=== PATIENT | female | born 1935 | race African-American/Black ===

== ENCOUNTER 2016-12-24 13:41 | Observation (INO) | payer MEDICARE, OTHER ==
[~2016-12-24] VITALS: Ht 165.1 cm; Wt 70.8 kg
[2016-12-24 14:30] LABS: BARBITURATES NEG (NEG); BENZODIAZEPINES NEG (NEG); CANNABINOIDS NEG (NEG); COCAINE NEG (NEG); METHADONE NEG (NEG); OPIATES NEG (NEG); PHENCYCLIDINE NEG (NEG)
[2016-12-24 14:31] LABS: BASO # 0.1 x10^3/uL (0.0-0.2); BASO % 1 % (0-3); EOS % 3 % (0-3); HEMATOCRIT 46.4 % (36.0-47.0); HEMOGLOBIN 15.4 g/dL (12.0-15.5); LYMPH # 2.7 x10^3/uL (1.0-4.8); LYMPH % 41 % (24-48); MEAN CORPUSCULAR HEMOGLOBIN 29 pg (25-35); MEAN CORPUSCULAR HGB CONC 33 g/dL (31-37); MEAN CORPUSCULAR VOLUME 89 fL (79-100); MONO % 10 % (0-9); NEUT % 45 % (31-73); PLATELET COUNT 222 x10^3/uL (140-400); RED BLOOD COUNT 5.24 x10^6/uL (3.50-5.40); RED CELL DISTRIBUTION WIDTH 13.4 % (11.5-14.5); WHITE BLOOD COUNT 6.4 x10^3/uL (4.0-11.0)
[2016-12-24 14:33] LABS: ETHANOL, URINE NEG (NEG)
--- NOTE | 2016-12-24 14:33 | EKG ---
[facility] [address] [place] [address] Test Date: 2016-12-24 Test Time: 13:55:42 Pat Name: KUSHAL PRATHER Department: Room: Gender: F [employer] Tender: : 1935 Requested By: IVA VALADEZ Order Number: [id number] Reading MD: Measurements Intervals Mullin Rate: 72 P: AK: QRS: 29 QRSD: 86 T: 67 QT: 394 QTc: 433 Interpretive Statements IRREGULAR RHYTHM, NO P-WAVE FOUND QRS(T) CONTOUR ABNORMALITY CONSIDER ANTEROSEPTAL MYOCARDIAL DAMAGE T ABNORMALITY IN ANTERIOR LEADS HIGH LATERAL LEADS RI6.01 Unconfirmed report No previous ECG available for comparison
[2016-12-24 14:45] LABS: INR 1.1 (0.8-1.1); PROTHROMBIN TIME PATIENT 13.2 SEC (11.7-14.0)
[2016-12-24 14:49] LABS: CALCIUM 9.3 mg/dL (8.5-10.1); CREATININE 0.7 mg/dL (0.6-1.0); GFR 97.4; POTASSIUM 4.5 mmol/L (3.5-5.1)
--- NOTE | 2016-12-24 15:02 | RAD ---
CT of the head without contrast, 12/24/2016: History: Seizures. Comparison is made to a study from 04/11/2012. The ventricles are within normal limits in size. There is no shift of the midline structures. There is no evidence of acute intracranial hemorrhage or mass effect. There is mild cerebral and cerebellar atrophy. IMPRESSION: No acute intracranial abnormality is detected. PQRS Compliance Statement: One or more of the following individualized dose reduction techniques were utilized for this examination: 1. Automated exposure control 2. Adjustment of the mA and/or kV according to patient size 3. Use of iterative reconstruction technique
[2016-12-24] MEDS ORDERED: MIRT15TA3 PO (15:57)
[2016-12-24] MEDS ORDERED: LORA0.5T PO (15:57)
[2016-12-24] MEDS ORDERED: OLAN5TAB9 PO (15:57)
[2016-12-24] MEDS ORDERED: ESCI10TA PO (15:57)
[2016-12-24] MEDS ORDERED: METF10002 PO (15:57)
[2016-12-24] MEDS ORDERED: DONE10TA14 PO (15:57)
[2016-12-24] MEDS ORDERED: LEVE500T6 PO (15:57)
[2016-12-24] MEDS ORDERED: METO25TA9 PO (15:57)
--- NOTE | 2016-12-24 16:34 | PHYS DOC ---
Past Medical History Past Medical History: Anxiety, Dementia, Diabetes-Type II, Hypertension, Seizure Past Surgical History: No Surgical History Alcohol Use: None Drug Use: None Adult General Chief Complaint Chief Complaint: SEIZURE HPI HPI 81-year-old female presenting to the emergency department today after having reportedly 3 seizures at home. Lasted approximately 4 minutes. Patient's family here reporting that the patient returned to baseline. She denies any fall or head injury. She currently takes antiepileptic medications Keppra 500 mg twice a day. She was postictal however upon EMS arrival the patient was responsive and alert. Review of systems was negative for chest pain shortness of breath abdominal pain nausea or vomiting. The patient denies numbness weakness or tingling. All other review of systems is negative unless otherwise noted in history of present illness. Review of Systems Review of Systems SEE ABOVE. Allergies Allergies Allergies Coded Allergies Type Severity Reaction Last Updated Verified codeine Allergy Intermediate 02/22/15 No iodine Allergy Intermediate 02/22/15 No Physical Exam Physical Exam Constitutional: Well developed, well nourished, no acute distress, non-toxic appearance. HENT: Normocephalic, atraumatic, bilateral external ears normal, oropharynx moist, no oral exudates, nose normal. [] Eyes: PERRLA, EOMI, conjunctiva normal, no discharge. Neck: Normal range of motion, no tenderness, supple, no stridor. [] Cardiovascular:Heart rate regular rhythm, no murmur [] Lungs & Thorax: Bilateral breath sounds clear to auscultation Abdomen: Bowel sounds normal, soft, no tenderness, no masses, no pulsatile masses. [] Skin: Warm, dry, no erythema, no rash. Back: No tenderness, no CVA tenderness. [] Extremities: No tenderness, no cyanosis, no clubbing, ROM intact, no edema. [] Neurologic: Neuro exam: Mental status: Awake oriented and alert x3 Cranial nerves: Extraocular movements intact, eyebrows elena bilaterally smile symmetric, uvula elevation, shoulder shrug intact, tongue protrusion normal Sensation: equal and normal in all extremities Strength: 5/5 in upper and lower extremities bilaterally Psychologic: Affect normal, judgement normal, mood normal. [] Current Patient Data Vital Signs Vital Signs Date Time Temp Pulse Resp B/P Pulse Ox O2 Delivery O2 Flow Rate FiO2 12/24/16 13:50 97.8 72 20 213/98 96 Room Air 97.8 Lab Values Laboratory Tests Test 12/24/16 13:57 12/24/16 14:20 Urine Opiates Screen Neg (NEG) Urine Methadone Screen Neg (NEG) Urine Barbiturates Neg (NEG) Urine Phencyclidine Screen Neg (NEG) Urine Amphetamine/Methamphetamine Neg (NEG) Urine Benzodiazepines Screen Neg (NEG) Urine Cocaine Screen Neg (NEG) Urine Cannabinoids Screen Neg (NEG) Urine Ethyl Alcohol Neg (NEG) White Blood Count 6.4x10^3/uL (4.0-11.0) Red Blood Count 5.24x10^6/uL (3.50-5.40) Hemoglobin 15.4g/dL (12.0-15.5) Hematocrit 46.4% (36.0-47.0) Mean Corpuscular Volume 89fL (79-100) Mean Corpuscular Hemoglobin 29pg (25-35) Mean Corpuscular Hemoglobin Concent 33g/dL (31-37) Red Cell Distribution Width 13.4% (11.5-14.5) Platelet Count 222x10^3/uL (140-400) Neutrophils (%) (Auto) 45% (31-73) Lymphocytes (%) (Auto) 41% (24-48) Monocytes (%) (Auto) 10% (0-9) H Eosinophils (%) (Auto) 3% (0-3) Basophils (%) (Auto) 1% (0-3) Neutrophils # (Auto) 2.9x10^3uL (1.8-7.7) Lymphocytes # (Auto) 2.7x10^3/uL (1.0-4.8) Monocytes # (Auto) 0.6x10^3/uL (0.0-1.1) Eosinophils # (Auto) 0.2x10^3/uL (0.0-0.7) Basophils # (Auto) 0.1x10^3/uL (0.0-0.2) Prothrombin Time 13.2SEC (11.7-14.0) Prothrombin Time INR 1.1 (0.8-1.1) PTT 29SEC (24-38) Sodium Level 148mmol/L (136-145) H Potassium Level 4.5mmol/L (3.5-5.1) Chloride Level 107mmol/L (98-107) Carbon Dioxide Level 29mmol/L (21-32) Anion Gap 12 (6-14) Blood Urea Nitrogen 8mg/dL (7-20) Creatinine 0.7mg/dL (0.6-1.0) Estimated GFR (Cockcroft-Gault) 97.4 Glucose Level 145mg/dL (70-99) H Calcium Level 9.3mg/dL (8.5-10.1) Laboratory Tests 12/24/16 14:20 Laboratory Tests 12/24/16 14:20 EKG EKG [] Radiology/Procedures Radiology/Procedures [] Course & Med Decision Making Course & Med Decision Making Pertinent Labs and Imaging studies reviewed. (See chart for details) [] 81-year-old female presenting to the emergency department today with 3 seizure like activities. On arrival the patient was back to normal neurologic exam. The patient follows with our neurology team on a regular basis. She reports taking her medications as prescribed. Vital signs showed significant hypertension. Otherwise unremarkable. Pertinent physical exam shows neurologic exam unremarkable. Head CT unremarkable. Blood work obtained which showed normal CBC. Chemistry panel shows mild hypernatremia and hyperglycemia. Otherwise UDS negative. The patient was then admitted for further evaluation workup and care including monitoring of her seizure condition. Neurology consult placed. Dragon Disclaimer Dragon Disclaimer This electronic medical record was generated, in whole or in part, using a voice recognition dictation system. Departure Departure Impression: Primary Impression: Seizure Disposition: ADMITTED INPATIENT Admitting Physician: Storm Conner Condition: STABLE Referrals: STORM CONNER MD (PCP) IVA VALADEZ MD Dec 24, 2016 16:34
[2016-12-24] MEDS ORDERED: LABETALOL 20 MG/4 ML DISP.SYRIN. IVP ONE (16:45)
--- NOTE | 2016-12-24 17:03 | ACF ---
Admission Forms Criteria SEIZURE Clinical Indications for Admission to Inpatient Care (Place 'X' for any and all applicable criteria): Admission is indicated for seizure and ANY ONE of the following(1)(2)(3)(4)(5): [X]I. Inpatient admission required rather than observation care (Also use Seizure: Observation Care Criteria as appropriate) because of ANY ONE of the following: [ ]a) Altered mental status that is severe or persistent [ ]b) New focal neurologic deficit that is severe or persistent [ ]c) Metabolic disorder (eg, hypoglycemia, hyponatremia) that is severe or persistent [X]d) Recurrent seizure [ ]e) Outpatient antiseizure regimen cannot be established (eg , patient cannot tolerate medication, initiation requires inpatient care) [ ]f) Need for ongoing intravenous infusion of antiseizure medication [ ]g) Cardiac arrhythmias of immediate concern [ ]h) Cerebral bleeding, hydrocephalus, or vasospasm monitoring (14) [ ]i) Increased intracranial pressure or cerebral edema monitoring (15) [ ]j) Other treatment or monitoring requiring inpatient admission [ ]II. Status epilepticus [A] or repetitive seizures not controlled with emergent treatment (6)(8) [ ]III. Brain disorder (eg, tumor, edema, and hydrocephalus) that requiring monitoring or intervention available only at inpatient level of care. [ ]IV. Brain insult (eg, severe trauma, stroke, drug toxicity, or withdrawal) that requires monitoring or intervention available only at inpatient level of care (10)(11) Extended stay beyond goal length of stay may be needed for (22) [ ]a) Complications of status epilepticus [ ]b) Refractory status epilepticus [ ]c) Etiology-specific therapy for conditions such as FRUIT TESTER infection, head injury,eclampsia, severe metabolic abnormalities, and brain tumor [ ]d) Residual neurologic damage, [ ]e) Initiation of significant change to anticonvulsant treatment [ ]f) Older patients (65 years or older) [ ]g) Patient requiring intubation (eg, to protect airway) The original [employer] content created by [employer] has been revised. The portions of the content which have been revised are identified through the use of italic text or in bold, and [facility] [employer] has neither reviewed nor approved the modified material. All other unmodified content is copyright [facility] [employer]. Please see references footnoted in the original [facility] edition 2016 Admission Criteria Met?: Yes VALDEMAR WHITE Dec 24, 2016 17:03
[2016-12-24] MEDS ORDERED: DEXTROSE 50% 25 GM / 50ML DISP.SYRIN. IV PRN (18:30)
[2016-12-24 19:00] VITALS: BP 149/96
[2016-12-24] MEDS ORDERED: LISI40TA PO (19:21)
[2016-12-24] MEDS ORDERED: ONDA4TAB12 PO (19:21)
[2016-12-24] MEDS ORDERED: PNEUMOCOCCAL VAX SCREEN BY RX. MC ONE (19:45)
[2016-12-24] MEDS ORDERED: PNEUMOC CONJ VACC 23-VALENT 0.5 ML VIAL. VAX IM ONE (20:00)
[2016-12-24] MEDS: LEVETIRACETAM 500 MG TABLET PO SCH (20:45)
[2016-12-24] MEDS: OLANZAPINE 5 MG TABLET. PO SCH (20:45)
[2016-12-24] MEDS: LORAZEPAM 0.5 MG TABLET. PO SCH (20:45)
[2016-12-24] MEDS ORDERED: MIRTAZAPINE 15 MG TABLET PO SCH (21:00)
[2016-12-24 23:00] VITALS: BP 153/72
[2016-12-25 03:00] VITALS: BP 123/77
[2016-12-25 07:00] VITALS: BP 174/86
[2016-12-25] MEDS ORDERED: METFORMIN 1,000 MG TABLET PO SCH (08:00)
[2016-12-25] MEDS: INSULIN ASPART 300 UNITS/3 ML INSULN.PEN SQ SCH ×2 (08:00→12:00)
[2016-12-25] MEDS: LORAZEPAM 0.5 MG TABLET. PO SCH (08:11)
[2016-12-25] MEDS: LEVETIRACETAM 500 MG TABLET PO SCH (08:11)
[2016-12-25] MEDS: OLANZAPINE 5 MG TABLET. PO SCH (08:11)
[2016-12-25] MEDS ORDERED: METOPROLOL SUCC 24HR ER 25 MG TAB.ER.24H. PO SCH (09:00)
[2016-12-25 10:50] VITALS: BP 140/68
[2016-12-25] MEDS ORDERED: LOSARTAN POTASSIUM 50 MG TABLET. PO SCH (11:00)
[2016-12-25 12:16] VITALS: BP 140/68
--- NOTE | 2016-12-25 12:58 | HP ---
ADMIT DATE: 12/24/2016 CHIEF COMPLAINT AND HISTORY OF PRESENT ILLNESS: This is an 81-year-old black female patient of Dr. Scott who was admitted through the Emergency Room with 3 seizures on the day of admission. They lasted a couple of minutes at a time and were described this as consistent with staring off and stiffening up. They came in succession and then had no further spells. After this was all done over a period of time, she returned to baseline, was brought to the Emergency Room because of them and was awake and alert at her normal level by the time of presentation to the Emergency Room after some initial postictal time in the field. PAST MEDICAL HISTORY: Remarkable for prior seizure. She has a history of hypertension, diabetes, dementia, anxiety. PAST SURGICAL HISTORY: She has no past surgical history. MEDICATIONS: Brought with the patient. Listed on the computer and have been addressed. ALLERGIES: SHE IS ALLERGIC TO CODEINE AND IODINE. FAMILY HISTORY AND SOCIAL HISTORY: Noncontributory. REVIEW OF SYSTEMS: Is remarkable for having no complaints whatsoever. Her son who present during the exam describes the episodes at home as he was there witnessing them. They deny any other significant problems preceding this or leading up to this episode. PHYSICAL EXAMINATION: GENERAL: She is a well-developed, well-nourished black female, in no acute distress. VITAL SIGNS: Stable. She is afebrile. HEAD, EYES, EARS, NOSE AND THROAT: Unremarkable. NECK: Supple. No thyromegaly. CHEST: Clear to auscultation and percussion. HEART: Regular rate and rhythm, without S3, S4 or murmur. ABDOMEN: Soft, nontender, without hepatosplenomegaly or mass. EXTREMITIES: Without cyanosis, clubbing or edema. NEUROLOGIC: Nonfocal. IMAGING: CT head shows no acute changes. Drug screen is normal. LABORATORY DATA: Essentially unremarkable. IMPRESSION: Seizure times 3 on day of admission with multiple other problems listed above. PLAN: The patient has been admitted. Neurology will be consulted for suggestions as far as further treatment and the patient will be monitored, managed and treated appropriately. SUE WALTON MD DR: SHANTI/sharla JOB#: [id number] / [id number]
--- NOTE | 2016-12-25 13:46 | PDOC2 ---
NEUROLOGY CONSULT Date of Admission Date of Admission DATE: 12/25/16 TIME: 13:41 Reason for Consult Reason for Consult: Seizures Referring Physician Referring Physician: Dr. Scott Source Source: Caregiver, Chart review, Patient History of Present Illness History of Present Illness The patient is an 81-year-old right-handed female whom I follow in the office for Alzheimer's dementia and epilepsy. I last saw her 9 months ago. She had 3 seizures yesterday and was admitted. There has been no noncompliance, stress, sleep deprivation, or infection. This is her usual course for her epilepsy with flurries of seizures by months of seizure freedom. She has rather severe dementia but still lives at home with her and does well. There is no history of stroke or head injury. Past Medical History Cardiovascular: HTN CENTRAL NERVOUS SYSTEM: Dementia, Seizure Endocrine: Diabetes Past Surgical History Past Surgical History: No pertinent history Family History Family History: CAD Social History Social History , nonsmoker, nondrinker Current Medications Current Medications Current Medications Labetalol HCl (Normodyne) 20 mg 1X ONCE IVP Last administered on 12/24/16 16: 47; Start 12/24/16 at 16:45; Stop 12/24/16 at 16:46; Status DC Levetiracetam (Keppra) 500 mg BID PO Last administered on 12/25/16 08:11; Start 12/24/16 at 21:00; Stop 12/25/16 at 09:43; Status DC Lorazepam (Ativan) 0.5 mg TID PO Last administered on 12/25/16 08:11; Start at 21:00 Metformin HCl (Glucophage) 1,000 mg BIDWMEALS PO Last administered on 08:11; Start 12/25/16 at 08:00 Metoprolol Succinate (Toprol Xl) 25 mg DAILY PO Last administered on 12/25/16 08:12; Start 12/25/16 at 09:00 Mirtazapine (Remeron) 15 mg QHS PO Last administered on 12/24/16 20:45; Start 12/24/16 at 21:00 Olanzapine (Zyprexa) 5 mg DAILY PO Last administered on 12/25/16 08:11; Start 12/24/16 at 19:00 Insulin Aspart (Novolog) 0-5 UNITS TIDWMEALS SQ ; Start 12/25/16 at 08:00 Dextrose 12.5 gm PRN Q15MIN PRN IV SEE COMMENTS; Start 12/24/16 at 18:30 Pneumococcal Polyvalent Vaccine (Do NOT chart on this placeholder) 1 each 1X ONCE MC ; Start 12/24/16 at 19:45; Stop 12/24/16 at 19:46; Status UNV Pneumococcal Polyvalent Vaccine (Pneumovax 23) 0.5 ml ONCE ONCE VAX IM Last administered on 12/24/16t 20:46; Start 12/24/16 at 20:00; Stop 12/24/16 at 20:01 ; Status DC Levetiracetam (Keppra) 2,000 mg BID PO ; Start 12/25/16 at 21:00 Losartan Potassium (Cozaar) 100 mg DAILY PO Last administered on 12/25/16t 12: 16; Start 12/25/16 at 11:00 Active Scripts Active Reported Ondansetron Odt (Ondansetron) 4 Mg Tab.rapdis 1 Tab PO PRN Q6-8HRS Lisinopril 40 Mg Tablet 1 Tab PO DAILY Levetiracetam 500 Mg Tablet 500 Mg PO BID Metformin Hcl 1,000 Mg Tablet 1 Tab PO BID Lorazepam 0.5 Mg Tablet 0.5 Mg PO TID Escitalopram Oxalate 10 Mg Tablet 10 Mg PO DAILY Mirtazapine 15 Mg Tablet 1 Tab PO QHS Donepezil Hcl 10 Mg Tab.rapdis 10 Mg PO HS Olanzapine 5 Mg Tablet 5 Mg PO DAILY Metoprolol Succinate ( Xl ) (Metoprolol Succinate) 25 Mg Tab.er.24h 25 Mg PO DAILY Allergies Allergies: Coded Allergies: codeine (Verified Allergy, Intermediate, 12/25/16) iodine (Verified Allergy, Intermediate, 12/25/16) ROS Review of System Patient denies fevers, chills, weight loss, dyspnea, angina, abdominal pain, change in bowels, or dysuria. 14 point review of systems is negative. Physical Exam Physical Examination PHYSICAL EXAMINATION: Vital signs: see above. General appearance is normal and in no acute distress. HEENT: Normocephalic and nontraumatic. Eyes, nose, ears, and throat are unremarkable. Neck is supple. No lymphadenopathy. No bruits are heard over the carotid artery. No crepitus. NEUROLOGICAL EXAMINATION: Mental Status Examination: Alert. Oriented to place, and person, not date. Answers questions and follows commends. Pupils are equal round and reactive to light and accommodation. Extraocular movements are intact. Visual field exam shows no defect on the direct confrontation. No motor or sensory deficits on the facial exam. Uvula in the midline and the soft palate elevated symmetrically. No deviation of the tongue to any direction. Gross hearing is normal. Shoulder shrug normal. Muscle tone is normal. Muscle strength is 5/ 5. Deep tendon reflexes are 2+. Plantar reflex is with flexion response bilaterally. Rtywju-xo-xayf test performance is accurate. Alternative movements are accurate. Romberg test is negative. Gait is normal. Sensory exam shows no deficits. No cerebellar signs are elicited. Vitals VITALS Vital Signs Date Time Temp Pulse Resp B/P Pulse Ox O2 Delivery O2 Flow Rate FiO2 12/25/16 12:16 81 140/68 12/25/16 10:50 99.5 16 96 Room Air 99.5 Labs Labs Laboratory Tests Test 12/24/16 13:57 12/24/16 14:20 12/24/16 20:58 12/25/16 07:09 Urine Opiates Screen Neg (NEG) Urine Methadone Screen Neg (NEG) Urine Barbiturates Neg (NEG) Urine Phencyclidine Screen Neg (NEG) Urine Amphetamine/Methamphetamine Neg (NEG) Urine Benzodiazepines Screen Neg (NEG) Urine Cocaine Screen Neg (NEG) Urine Cannabinoids Screen Neg (NEG) Urine Ethyl Alcohol Neg (NEG) White Blood Count 6.4x10^3/uL (4.0-11.0) Red Blood Count 5.24x10^6/uL (3.50-5.40) Hemoglobin 15.4g/dL (12.0-15.5) Hematocrit 46.4% (36.0-47.0) Mean Corpuscular Volume 89fL (79-100) Mean Corpuscular Hemoglobin 29pg (25-35) Mean Corpuscular Hemoglobin Concent 33g/dL (31-37) Red Cell Distribution Width 13.4% (11.5-14.5) Platelet Count 222x10^3/uL (140-400) Neutrophils (%) (Auto) 45% (31-73) Lymphocytes (%) (Auto) 41% (24-48) Monocytes (%) (Auto) 10% (0-9) Eosinophils (%) (Auto) 3% (0-3) Basophils (%) (Auto) 1% (0-3) Neutrophils # (Auto) 2.9x10^3uL (1.8-7.7) Lymphocytes # (Auto) 2.7x10^3/uL (1.0-4.8) Monocytes # (Auto) 0.6x10^3/uL (0.0-1.1) Eosinophils # (Auto) 0.2x10^3/uL (0.0-0.7) Basophils # (Auto) 0.1x10^3/uL (0.0-0.2) Prothrombin Time 13.2SEC (11.7-14.0) Prothromb Time International Ratio 1.1 (0.8-1.1) Activated Partial Thromboplast Time 29SEC (24-38) Sodium Level 148mmol/L (136-145) Potassium Level 4.5mmol/L (3.5-5.1) Chloride Level 107mmol/L (98-107) Carbon Dioxide Level 29mmol/L (21-32) Anion Gap 12 (6-14) Blood Urea Nitrogen 8mg/dL (7-20) Creatinine 0.7mg/dL (0.6-1.0) Estimated GFR (Cockcroft-Gault) 97.4 Glucose Level 145mg/dL (70-99) Calcium Level 9.3mg/dL (8.5-10.1) Glucose (Fingerstick) 122mg/dL (70-99) 130mg/dL (70-99) Test 12/25/16 11:16 Glucose (Fingerstick) 130mg/dL (70-99) Laboratory Tests Test 12/24/16 13:57 12/24/16 14:20 12/24/16 20:58 12/25/16 07:09 Urine Opiates Screen Neg (NEG) Urine Methadone Screen Neg (NEG) Urine Barbiturates Neg (NEG) Urine Phencyclidine Screen Neg (NEG) Urine Amphetamine/Methamphetamine Neg (NEG) Urine Benzodiazepines Screen Neg (NEG) Urine Cocaine Screen Neg (NEG) Urine Cannabinoids Screen Neg (NEG) Urine Ethyl Alcohol Neg (NEG) White Blood Count 6.4x10^3/uL (4.0-11.0) Red Blood Count 5.24x10^6/uL (3.50-5.40) Hemoglobin 15.4g/dL (12.0-15.5) Hematocrit 46.4% (36.0-47.0) Mean Corpuscular Volume 89fL (79-100) Mean Corpuscular Hemoglobin 29pg (25-35) Mean Corpuscular Hemoglobin Concent 33g/dL (31-37) Red Cell Distribution Width 13.4% (11.5-14.5) Platelet Count 222x10^3/uL (140-400) Neutrophils (%) (Auto) 45% (31-73) Lymphocytes (%) (Auto) 41% (24-48) Monocytes (%) (Auto) 10% (0-9) Eosinophils (%) (Auto) 3% (0-3) Basophils (%) (Auto) 1% (0-3) Neutrophils # (Auto) 2.9x10^3uL (1.8-7.7) Lymphocytes # (Auto) 2.7x10^3/uL (1.0-4.8) Monocytes # (Auto) 0.6x10^3/uL (0.0-1.1) Eosinophils # (Auto) 0.2x10^3/uL (0.0-0.7) Basophils # (Auto) 0.1x10^3/uL (0.0-0.2) Prothrombin Time 13.2SEC (11.7-14.0) Prothromb Time International Ratio 1.1 (0.8-1.1) Activated Partial Thromboplast Time 29SEC (24-38) Sodium Level 148mmol/L (136-145) Potassium Level 4.5mmol/L (3.5-5.1) Chloride Level 107mmol/L (98-107) Carbon Dioxide Level 29mmol/L (21-32) Anion Gap 12 (6-14) Blood Urea Nitrogen 8mg/dL (7-20) Creatinine 0.7mg/dL (0.6-1.0) Estimated GFR (Cockcroft-Gault) 97.4 Glucose Level 145mg/dL (70-99) Calcium Level 9.3mg/dL (8.5-10.1) Glucose (Fingerstick) 122mg/dL (70-99) 130mg/dL (70-99) Test 12/25/16 11:16 Glucose (Fingerstick) 130mg/dL (70-99) Images Images Head CT: No acute intracranial abnormality is detected. Assessment/Plan Assessment/Plan Impression: Long-standing epilepsy, tending to have flurries of seizures. Long-standing dementia Recommendations: Okay for discharge today Follow-up with me in the office in 2 months Continue current medications. Donepezil was omitted from her medications and I have written for it. Thank you for letting me help with the patient's care. GILLES GONZALES MD Dec 25, 2016 13:46
[2016-12-25] MEDS ORDERED: LEVE100S8 PO (14:18)
[2016-12-25] MEDS ORDERED: DONEPEZIL HCL 10 MG TABLET. PO SCH (14:30)
[2016-12-25] MEDS ORDERED: LEVETIRACETAM 500 MG TABLET PO SCH (21:00)
--- NOTE | 2016-12-26 05:46 | DS ---
DATE OF DISCHARGE: 12/25/2016 PRIMARY DIAGNOSIS: Epilepsy with flurry of seizures on the day of admission. ADDITIONAL DIAGNOSES: Dementia, hypertension, diabetes, anxiety. CHIEF COMPLAINT AND HISTORY OF PRESENT ILLNESS: This is an 81-year-old black female patient of Dr. Scott, who was admitted through the Emergency Room with 3 seizures on the day of admission. She does have a long history of seizures with intermittent flurries of the same. She had 3 on the day of admission, with admission through the Emergency Room. SUMMARY OF STAY: The patient was admitted. Home meds were continued. Dr. Salcido saw her in consultation, who thought no further workup was necessary other than the CT head, which had been done and showed no evidence of an acute intracranial abnormality. Laboratory during the stay included a CBC that was essentially unremarkable, BMP that was fairly unremarkable with decent blood sugars throughout the stay, a protime that was normal, PTT that was normal and a urine drug screen that was normal. I discussed in depth with her sons ____ she had good compliance with her medications at home ____ the same and it was felt she could be dismissed. DISPOSITION: The patient is discharged home. Regular ADA diet. Activity as tolerated. Office of Dr. Scott as scheduled and she is to resume exact regular home medications, which are listed on the med rec and have been addressed. SUE WALTON MD DR: SHANTI/sharla JOB#: [id number] / [id number]
== END 2016-12-25 14:30 | disposition home or self-care (01) ==
LOC: ER 13:41 → 6 SOUTH 16:34
PROVIDERS: ADMIT Internal Medicine; ATTEND Internal Medicine
DX: G40.909 Epilepsy, unspecified, not intractable, without status epilepticus (principal); I10 Essential (primary) hypertension; E11.9 Type 2 diabetes mellitus without complications; F41.9 Anxiety disorder, unspecified; G30.9 Alzheimer's disease, unspecified; F02.80 Dementia in other diseases classified elsewhere, unspecified severity, without behavioral disturbance, psychotic disturbance, mood disturbance, and anxiety; Z82.49 Family history of ischemic heart disease and other diseases of the circulatory system; Z23 Encounter for immunization
CPT/HCPCS: 36415; 70450; 80048; 82947; 85027; 85610; 85730; 90732; 93005; 96374; 99285; G0009; G0378; G0481; J1815; J3490; G0379

== ENCOUNTER 2017-02-12 23:47 | Emergency (ER) | payer MEDICARE, OTHER ==
[~2017-02-12 23:47] MED LIST: DONE10TA14 PO; ESCITALOPRAM OX10 MG PO; LEVE100S8 PO; LEVE500T6 PO; LISI40TA PO; LORA0.5T PO; METF-620 PO; METO25TA9 PO; MIRT15TA3 PO; OLAN5TAB9 PO; ONDA4TAB12 PO
--- NOTE | 2017-02-13 00:05 | PHYS DOC ---
Past Medical History Past Medical History: Anxiety, Dementia, Diabetes-Type II, Hypertension, Seizure Past Surgical History: No Surgical History Alcohol Use: None Drug Use: None Adult General Chief Complaint Chief Complaint: URINARY FREQUENCY HPI HPI Patient is a 81 year old female who presents to the emergency department for evaluation due to concern of possible urinary tract infection. Patient was brought to the emergency department by EMS. Patient has history of type 2 diabetes mellitus and dementia. Patient is a somewhat poor historian. Patient denies any complaints. EMS reports that the patient has been called EMS after the patient was taken to the bathroom and reportedly had dark urine that was foul-smelling. The was concerned that the patient may have urinary tract infection and thus called EMS for the patient to be brought to the emergency department for evaluation. Patient has had no reported fevers and patient states that she has not had any falls or any difficulty ambulating at home. Patient denies any pain, nausea, or dysuria. Review of Systems Review of Systems Constitutional: Denies fever or chills [] Eyes: Denies change in visual acuity, redness, or eye pain [] HENT: Denies nasal congestion or sore throat [] Respiratory: Denies cough or shortness of breath [] Cardiovascular: Denies chest pain or edema [] GI: Denies abdominal pain, nausea, vomiting, bloody stools or diarrhea [] : Denies dysuria or hematuria [] Musculoskeletal: Denies back pain or joint pain [] Integument: Denies rash or skin lesions [] Neurologic: Denies headache, focal weakness or sensory changes [] Allergies Allergies Allergies Coded Allergies Type Severity Reaction Last Updated Verified codeine Allergy Intermediate 12/25/16 Yes iodine Allergy Intermediate 12/25/16 Yes Physical Exam Physical Exam Constitutional: Well developed, well nourished, no acute distress, non-toxic appearance. [] HENT: Normocephalic, atraumatic, bilateral external ears normal, oropharynx moist, no oral exudates, nose normal. [] Eyes: PERRLA, EOMI, conjunctiva normal, no discharge. [] Neck: Normal range of motion, no tenderness, supple, no stridor. [] Cardiovascular:Heart rate regular rhythm, no murmur [] Lungs & Thorax: Bilateral breath sounds clear to auscultation [] Abdomen: Bowel sounds normal, soft, no tenderness, no masses, no pulsatile masses. [] Skin: Warm, dry, no erythema, no rash. [] Back: No tenderness, no CVA tenderness. [] Extremities: No tenderness, no cyanosis, no clubbing, ROM intact, no edema. [] Neurologic: Alert and oriented X 3, normal motor function, normal sensory function, no focal deficits noted. [] Current Patient Data Vital Signs Vital Signs Date Time Temp Pulse Resp B/P Pulse Ox O2 Delivery O2 Flow Rate FiO2 02/12/17 23:58 97.8 65 18 165/79 97 Room Air 97.8 Lab Values Laboratory Tests Test 02/13/17 00:01 Urine Collection Type U cath Urine Color Yellow Urine Clarity Clear Urine pH 6.0 Urine Specific Nitro 1.015 Urine Protein Negativemg/dL (NEG-TRACE) Urine Glucose (UA) Negativemg/dL (NEG) Urine Ketones (Stick) Negativemg/dL (NEG) Urine Blood Negative (NEG) Urine Nitrite Negative (NEG) Urine Bilirubin Negative (NEG) Urine Urobilinogen Dipstick 1.0mg/dL (0.2 mg/dL) Urine Leukocyte Esterase Negative (NEG) Urine RBC Occ/HPF (0-2) Urine WBC Occ/HPF (0-4) Urine Squamous Epithelial Cells Few/LPF Urine Bacteria 0/HPF (0-FEW) Urine Hyaline Casts Few/HPF Urine Mucus Mod/LPF EKG EKG Not performed [] Radiology/Procedures Radiology/Procedures Not performed [] Course & Med Decision Making Course & Med Decision Making Pertinent Labs and Imaging studies reviewed. (See chart for details) Patient's UA does not reveal convincing evidence for active urinary tract infection. I spoke with the patient and the patient's about results. The states that he was glad to hear there was no infection and he stated he felt comfortable taking the patient home tonight. Patient otherwise has no complaints. The patient will be discharged home with recommended routine follow-up in one week with the patient's primary doctor and return to emergency department for any worsening symptoms. Dragon Disclaimer Dragon Disclaimer This electronic medical record was generated, in whole or in part, using a voice recognition dictation system. Departure Departure Impression: Primary Impression: Feared condition not demonstrated Disposition: 01 HOME, SELF-CARE Condition: GOOD Referrals: STORM CONNER MD (PCP) Additional Instructions: Your urinalysis did not show any evidence of infection at this time. Follow-up with your primary doctor in 1 week as needed. Return to the emergency department for any worsening symptoms. JONG MENDOZA MD Feb 13, 2017 00:05
[2017-02-13 00:11] LABS: BILIRUBIN,URINE NEGATIVE (NEG); GLUCOSE,URINE NEGATIVE (NEG); NITRITE,URINE NEGATIVE (NEG); PROTEIN,URINE NEGATIVE (NEG-TRACE)
--- NOTE | 2017-02-13 00:11 | ACF ---
Admission Forms Criteria URINARY COMPLICATIONS Clinical Indications for Inpatient Care (Place 'X' for any and all applicable criteria): Ongoing inpatient care may be indicated for urinary complications with ANY ONE of the following: [ ]I. Urinary tract infection requiring inpatient care as indicated by ANY ONE of the following(8)(19)(20): [ ]a) Severe symptoms (eg, high fever, severe pain) [ ]b) Vomiting or dehydration requiring ongoing inpatient care [ ]c) IV antibiotic needs that cannot be managed at lower level of care [ ]d) Hemodynamic instability [ ]e) Obstruction of collecting system by stone or tumor [ ]II. Urinary retention requiring drainage or surgery (3)(4)(5)(17)(18) [ ]III. Renal failure (Use Renal Failure Criteria for further information.) [ ]IV. Oliguria(30) [ ]V. Post obstructive diuresis requiring close monitoring of urine output and intravenous compensation for excessive fluid losses(33) Extended stay beyond goal length of stay for primary condition may be needed until ALL of the following are present(3)(4)(5)(8): [ ]a) Renal function (creatinine) at baseline, or daily decreases in creatinine consistent with renal function return [ ]b) Voiding adequately or with urinary catheter or percutaneous suprapubic tube and management regimen in place that is performable at lower level of care. [ ]c) Urine output adequate [ ]d) Fever absent or resolving [ ]e) Infection absent or treatable at next level of care The original [employer] content created by [employer] has been revised. The portions of the content which have been revised are identified through the use of italic text or in bold, and [facility] has neither reviewed nor approved the modified material. All other unmodified content is copyright [employer] Please see references footnoted in the original [employer] edition 2016 YSABEL DUARTE Feb 13, 2017 00:11
[2017-02-13 00:20] LABS: BACTERIA,URINE 0 /HPF (0-FEW); RBC,URINE OCC /HPF (0-2); SQUAMOUS EPITHELIAL CELL,UR FEW /LPF; WBC,URINE OCC /HPF (0-4)
[2017-02-13 00:31] VITALS: BP 169/78
== END 2017-02-13 00:45 | disposition home or self-care (01) ==
LOC: ER 23:47
DX: Z71.1 Person with feared health complaint in whom no diagnosis is made (principal); E11.9 Type 2 diabetes mellitus without complications; F03.90 Unspecified dementia, unspecified severity, without behavioral disturbance, psychotic disturbance, mood disturbance, and anxiety; F41.9 Anxiety disorder, unspecified; I10 Essential (primary) hypertension; Z88.5 Allergy status to narcotic agent; Z91.041 Radiographic dye allergy status
CPT/HCPCS: 81001; 99283; P9612

== ENCOUNTER → 2017-02-23 | Outpatient (CLI) | payer MEDICARE, OTHER ==
[2017-02-13 00:31] VITALS: BP 169/78
[~2017-02-23] MED LIST changes: +ESCI10TA PO; -ESCITALOPRAM OX10 MG PO
--- NOTE | 2017-02-23 11:29 | KCIC ---
Bilateral digital screening mammograms with CAD: HISTORY Routine screening. COMPARISON Comparison is made to previous studies dated 01/07/2016 and 12/25/2014. FINDINGS Breast density category A. The skin and nipples show no abnormalities. No abnormal lymph nodes are seen in the axilla. The breast parenchyma is predominately fatty. There are no dominant masses, suspicious calcifications or architectural distortions. Note is made of some vascular calcifications bilaterally. IMPRESSION No evidence of malignancy. Recommend routine annual mammographic screening. This study was interpreted with the benefit of Computerized Aided Detection (CAD). Mammography is not 100% sensitive in detecting breast cancer. Therefore, a self breast exam and a clinical breast exam are very important. A negative mammogram does not negate a clinically suspicious finding and should not result in a delay in biopsying a clinically suspicious abnormality. BI-RADS category 1. Negative. This patient's information has been entered into a reminder system for the patient to be notified with the results of this examination and a target date for her next mammograms. Electronically signed by: Jennifer Bee MD (February 23, 2017 11:27:40)
--- NOTE | 2017-02-23 12:11 | KCIC ---
DEXA study Indication: Osteoporosis screening Reason For Study Reason: POST MENOPAUSAL, EVALUATE FOR OSTEOPOROSIS / Spl. Instructions: / History: Findings: score:-2.2 According to the world health organization (WHO): Normal: T score at or above -1 Osteopenia: T score between -1 and -2.5 Osteoporosis: T score at or below -2.5 Impression: - Findings are consistent with osteopenia. Electronically signed by: Russel Nix (February 23, 2017 12:10:09)
== END | disposition home or self-care (01) ==
LOC: KCIC DEXA 10:22
PROVIDERS: ATTEND Internal Medicine
DX: Z12.31 Encounter for screening mammogram for malignant neoplasm of breast (principal); Z13.820 Encounter for screening for osteoporosis; Z78.0 Asymptomatic menopausal state; M85.88 Other specified disorders of bone density and structure, other site
CPT/HCPCS: 77080; G0202; 77067

== ENCOUNTER → 2017-05-25 | Outpatient (CLI) | payer MEDICARE, OTHER ==
[~2017-05-25] MED LIST changes: -ESCI10TA PO; +ESCITALOPRAM OX10 MG PO
--- NOTE | 2017-05-25 08:32 | RAD ---
Indication:Pain Grayscale images of the abdomen were obtained. Comparison none Liver:No focal mass is seen in the visualized liver. The hepatic vasculature appears normal Gallbladder:Cholelithiasis is present. At least one large gallstone is seen within the gallbladder. The common bile duct diameter of approximately 6 mm is normal given the patient's age. Spleen:Normal Pancreas:As visualized normal Kidneys:Normal Abdominal aorta and IVC:Normal Ancillary findings:None Impression:Cholelithiasis. At least one large stone is present in the gallbladder
== END | disposition home or self-care (01) ==
LOC: US 07:56
PROVIDERS: ATTEND Internal Medicine
DX: K80.20 Calculus of gallbladder without cholecystitis without obstruction (principal)
CPT/HCPCS: 76700

== ENCOUNTER 2018-02-06 20:34 | Emergency (ER) | payer MEDICARE, OTHER ==
[2018-02-06 21:53] LABS: ADD MAN DIFF? NO
[2018-02-06 21:55] LABS: BASO % 1 % (0-3); EOS # 0.2 x10^3/uL (0.0-0.7); EOS % 3 % (0-3); HEMATOCRIT 42.9 % (36.0-47.0); HEMOGLOBIN 14.6 g/dL (12.0-15.5); LYMPH # 2.6 x10^3/uL (1.0-4.8); LYMPH % 41 % (24-48); MEAN CORPUSCULAR HEMOGLOBIN 31 pg (25-35); MEAN CORPUSCULAR HGB CONC 34 g/dL (31-37); MEAN CORPUSCULAR VOLUME 91 fL (79-100); MONO # 0.6 x10^3/uL (0.0-1.1); MONO % 9 % (0-9); NEUT # 2.9 x10^3uL (1.8-7.7); NEUT % 46 % (31-73); PLATELET COUNT 223 x10^3/uL (140-400); RED BLOOD COUNT 4.73 x10^6/uL (3.50-5.40); RED CELL DISTRIBUTION WIDTH 13.2 % (11.5-14.5); WHITE BLOOD COUNT 6.3 x10^3/uL (4.0-11.0)
[2018-02-06 22:09] LABS: ANION GAP 15 (6-14); BLOOD UREA NITROGEN 9 mg/dL (7-20); BUN/CREATININE RATIO 13 (6-20); CALCIUM 8.7 mg/dL (8.5-10.1); CARBON DIOXIDE 23 mmol/L (21-32); CHLORIDE 105 mmol/L (98-107); CREATININE 0.7 mg/dL (0.6-1.0); GFR 97.2; GLUCOSE 103 mg/dL (70-99); POTASSIUM 3.7 mmol/L (3.5-5.1); SODIUM 143 mmol/L (136-145)
[2018-02-06 22:16] LABS: ALBUMIN 3.3 g/dL (3.4-5.0); ALBUMIN/GLOBULIN RATIO 0.9 (1.0-1.7); ALK PHOS 91 U/L (46-116); ALT (SGPT) 17 U/L (14-59); AST (SGOT) 15 U/L (15-37); TOTAL BILIRUBIN 0.4 mg/dL (0.2-1.0)
[2018-02-06 22:30] LABS: BILIRUBIN,URINE NEGATIVE (NEG); CLARITY,URINE CLEAR; COLOR,URINE YELLOW; GLUCOSE,URINE NEGATIVE (NEG); NITRITE,URINE NEGATIVE (NEG); PROTEIN,URINE 30 mg/dL (NEG-TRACE); UROBILINOGEN,URINE 0.2 mg/dL (0.2 mg/dL)
[2018-02-06 22:36] LABS: BACTERIA,URINE 0 /HPF (0-FEW); HYALINE CASTS, URINE FEW /HPF; RBC,URINE 0 /HPF (0-2); WBC,URINE 0 /HPF (0-4)
== END 2018-02-06 23:44 | disposition home or self-care (01) ==
LOC: ER 20:34
DX: G40.909 Epilepsy, unspecified, not intractable, without status epilepticus (principal); F41.9 Anxiety disorder, unspecified; F03.90 Unspecified dementia, unspecified severity, without behavioral disturbance, psychotic disturbance, mood disturbance, and anxiety; E11.9 Type 2 diabetes mellitus without complications; I10 Essential (primary) hypertension; Z88.5 Allergy status to narcotic agent; Z91.041 Radiographic dye allergy status
CPT/HCPCS: 36415; 80053; 81001; 85025; 96365; 99284-25; J1953; P9612

== ENCOUNTER → 2018-03-27 | Outpatient (CLI) | payer MEDICARE, OTHER | END | disposition home or self-care (01) | LOC: MAMMO 13:45 | DX: Z12.31 Encounter for screening mammogram for malignant neoplasm of breast (principal) | CPT/HCPCS: 77063; 77067 ==

== ENCOUNTER 2018-09-18 14:22 | Emergency (ER) | payer MEDICARE ==
[~2018-09-18] VITALS: Ht 162.6 cm; Wt 55.8 kg
[~2018-09-18 14:22] MED LIST changes: +LISI-130 PO; -LISI40TA PO; -METF-620 PO; +METF10007 PO; +METO-239 PO; -METO25TA9 PO
--- NOTE | 2018-09-18 15:39 | RAD ---
CT HEAD AND CERVICAL SPINE WO Clinical indications: PAIN S/P FALL, DEMENTIA. NONCONTRAST HEAD CT COMPARISON: July 13, 2018. Technique: Noncontrast axial cross sectional scanning of the head was performed. PQRS compliance Statement One or more of the following individualized dose reduction techniques were utilized for this study: 1. Automated exposure control 2. Adjustment of the mA and/or kV according to patient size 3. Use of iterative reconstruction technique Findings: No acute intracranial hemorrhage or midline shift or mass-effect or hydrocephalus or extra-axial fluid collection is seen. No new focal hypodense area or sulci effacement is seen to indicate an acute infarct or edema radiographically. No skull fracture or pneumocephalus is seen. No opacification of the mastoid sinuses or the paranasal sinuses is seen. The maxillary sinuses are not completely seen in this study. Impression: No acute intracranial abnormality is seen. CERVICAL SPINE CT WITHOUT CONTRAST TECHNIQUE: Noncontrast helical CT scanning of the cervical spine was performed. Multiplanar 2-D reconstructions were generated. FINDINGS: No acute fracture or discitis or osteolytic process is evident. No anterolisthesis is seen. No perching of facet joints is evident. Degenerative facet arthropathy and degenerative endplate spurring and degenerative disc space narrowing is seen throughout the cervical spine. IMPRESSION: No acute fracture. Electronically signed by: Luc Gray MD (09/18/2018 3:35 PM) [facility]
--- NOTE | 2018-09-18 15:40 | RAD ---
Left humerus, 2 views, 09/18/2018: HISTORY: Fall, pain The bony structures are demineralized. No fracture is identified. There is moderate subcutaneous edema in the the superior aspect of the upper arm laterally. IMPRESSION: No acute bony abnormality is detected. Electronically signed by: Colt Magaña MD (09/18/2018 3:37 PM) [facility]
--- NOTE | 2018-09-18 16:36 | PHYS DOC ---
Past Medical History Past Medical History: Anxiety, Dementia, Diabetes-Type II, Hypertension, Seizure Past Medical History Limited due to dementia Past Surgical History Limited due to dementia Additional Information: Nonsmoker Alcohol Use: None Drug Use: None Social History Limited due to dementia Adult General Chief Complaint Chief Complaint: UPPER EXTREMITY INJURY HPI HPI 83 y/o female presents with history of mechanical trip and fall at home just prior to arrival. Patient reports she was "playing around" with her at time of injury. reports they both lost their balance and fell. Patient reports significant swelling and bruising to left upper arm. Small wound which is bleeding. denies loss of consciousness. Patient headache or neck pain. Patient denies other injury. Reports use of ASA daily. Limited due to dementia Review of Systems Review of Systems Musculoskeletal: Denies back pain or joint pain [] Integument: Report bruising and swelling to left upper arm Neurologic: Denies headache, focal weakness or sensory changes [] Limited due to dementia. Current Medications Current Medications Current Medications Medications (Trade) Dose Ordered Sig/Bethany Start Time Stop Time Status Last Admin Dose Admin Neomycin/ Polymyxin/ Bacitracin (Triple Antibiotic Ointment) 1 pkt 1X ONCE 09/18/18 16:45 09/18/18 16:46 DC 09/18/18 16:39 1 PKT Allergies Allergies Allergies Coded Allergies Type Severity Reaction Last Updated Verified codeine Allergy Intermediate 09/18/18 Yes iodine Allergy Intermediate 09/18/18 Yes Physical Exam Physical Exam Constitutional: Well developed, well nourished, no acute distress, non-toxic appearance. [] HENT: Normocephalic, atraumatic, bilateral TMs normal, oropharynx moist, nose normal Eyes: PERRL, EOMI, conjunctiva normal, no discharge. [] Neck: Normal range of motion, no tenderness, supple Cardiovascular: Heart rate regular rhythm, no murmur [] Lungs & Thorax: Bilateral breath sounds clear to auscultation [] Abdomen: Soft, no tenderness Skin: Warm, dry, no erythema, ecchymosis and swelling to left upper arm Back: No midline tenderness, no CVA tenderness. [] Extremities: Pelvis stable, Lower extremities with full ROM, Left upper arm ecchymosis and swelling concerning for hematoma, Small 0.5cm laceration to anterior upper arm with sanguinous leakage Neurologic: Alert and oriented X 2, normal motor function, normal sensory function, no focal deficits noted. [] Psychologic: Affect normal, judgement normal, mood normal. [] Current Patient Data Vital Signs Vital Signs Date Time Temp Pulse Resp B/P (MAP) Pulse Ox O2 Delivery O2 Flow Rate FiO2 09/18/18 16:42 88 173/89 (117) 97 Room Air 09/18/18 15:56 21 09/18/18 14:45 98.3 98.3 EKG EKG [] Radiology/Procedures Radiology/Procedures PROCEDURE: HUMERUS LEFT Left humerus, 2 views, 09/18/2018: HISTORY: Fall, pain The bony structures are demineralized. No fracture is identified. There is moderate subcutaneous edema in the the superior aspect of the upper arm laterally. IMPRESSION: No acute bony abnormality is detected. Electronically signed by: Colt Magaña MD (09/18/2018 3:37 PM) [facility] PROCEDURE: CT HEAD AND CERVICAL SPINE WO CT HEAD AND CERVICAL SPINE WO Clinical indications: PAIN S/P FALL, DEMENTIA. NONCONTRAST HEAD CT COMPARISON: July 13, 2018. Technique: Noncontrast axial cross sectional scanning of the head was performed. RS compliance Statement One or more of the following individualized dose reduction techniques were utilized for this study: 1. Automated exposure control 2. Adjustment of the mA and/or kV according to patient size 3. Use of iterative reconstruction technique Findings: No acute intracranial hemorrhage or midline shift or mass-effect or hydrocephalus or extra-axial fluid collection is seen. No new focal hypodense area or sulci effacement is seen to indicate an acute infarct or edema radiographically. No skull fracture or pneumocephalus is seen. No opacification of the mastoid sinuses or the paranasal sinuses is seen. The maxillary sinuses are not completely seen in this study. Impression: No acute intracranial abnormality is seen. CERVICAL SPINE CT WITHOUT CONTRAST TECHNIQUE: Noncontrast helical CT scanning of the cervical spine was performed. Multiplanar 2-D reconstructions were generated. FINDINGS: No acute fracture or discitis or osteolytic process is evident. No anterolisthesis is seen. No perching of facet joints is evident. Degenerative facet arthropathy and degenerative endplate spurring and degenerative disc space narrowing is seen throughout the cervical spine. IMPRESSION: No acute fracture. Electronically signed by: Luc Gray MD (09/18/2018 3:35 PM) [place] [id number] Course & Med Decision Making Course & Med Decision Making Pertinent Labs and Imaging studies reviewed. (See chart for details) Elderly patient with pmh of dementia presents with report of mechanical trip and fall at home which was witnessed by her . Denies LOC, headache, or neck pain. Reports left upper arm pain, bruising, and swelling. Physical exam concerning for underlying fracture and/or hematoma. Wound cleaned and dressed. Small laceration not requiring suture repair. ICE and VIDYA bandage applied. Due to dementia combined with use of daily ASA cannot fully exclude intracranial or cervical spine injury. CT head/cervical spine obtained without acute process. XR of humerus without acute fracture or dislocation. VIDYA bandage continued. Patient stable for discharge with outpatient follow-up with PCP. Discussed findings and plan with patient and family, who acknowledge understanding and agreement. Dragon Disclaimer Dragon Disclaimer This electronic medical record was generated, in whole or in part, using a voice recognition dictation system. Splinting Splinting : Location: left upper arm Pre-Made Type: VIDYA bandage Pre-Proc Neuro Vasc Exam: normal Post-Proc Neuro Vasc Exam: normal, unchanged from pre-exam Departure Departure Impression: Primary Impression: Hematoma Disposition: 01 HOME, SELF-CARE Condition: STABLE Referrals: ANKUR ESCAMILLA (PCP) Patient Instructions: Hematoma, [id number], RICE - Routine Care for Injuries , [id number] Additional Instructions: Hold Aspirin tonight. Use over the counter Tylenol as needed for pain. TASHA WASHINGTON DO Sep 18, 2018 16:36
[2018-09-18 16:42] VITALS: BP 173/89
[2018-09-18] MEDS ORDERED: NEOMY/BACITR/POLYMYXIN OINT PACKET. TP ONE (16:45)
== END 2018-09-18 16:52 | disposition home or self-care (01) ==
LOC: ER 14:22
DX: S41.112A Laceration without foreign body of left upper arm, initial encounter (principal); F41.9 Anxiety disorder, unspecified; I10 Essential (primary) hypertension; F03.90 Unspecified dementia, unspecified severity, without behavioral disturbance, psychotic disturbance, mood disturbance, and anxiety; Z88.5 Allergy status to narcotic agent; Z91.041 Radiographic dye allergy status; W01.0XXA Fall on same level from slipping, tripping and stumbling without subsequent striking against object, initial encounter; Y93.89 Activity, other specified; Y92.89 Other specified places as the place of occurrence of the external cause; Y99.8 Other external cause status
CPT/HCPCS: 70450; 72125; 73060; 99284-25

== ENCOUNTER → 2019-03-27 | Outpatient (CLI) | payer MEDICARE ==
--- NOTE | 2019-03-27 13:54 | RAD ---
DATE: 03/27/2019 EXAM: MAMMO DANE SCREENING BILATERAL HISTORY: Routine screening COMPARISON: 03/27/2018 This study was interpreted with the benefit of Computerized Aided Detection (CAD). Breast Density: SCATTERED The breast parenchyma shows scattered fibroglandular densities. Breast parenchyma level B. FINDINGS: 2-D and 3-D tomosynthesis imaging was performed in CC and MLO projections. An old breast biopsy marker is present laterally in the right breast. No suspicious breast densities are seen. Minimal benign type calcification is present. No suspicious microcalcifications have developed. IMPRESSION: There is no mammographic evidence of malignancy in either breast. BI-RADS CATEGORY: 2 BENIGN FINDING(S) RECOMMENDED FOLLOW-UP: 12M 12 MONTH FOLLOW-UP PQRS compliance statement: Patient information was entered into a reminder system with a target due date for the next mammogram. Mammography is a sensitive method for finding small breast cancers, but it does not detect them all and is not a substitute for careful clinical examination. A negative mammogram does not negate a clinically suspicious finding and should not result in delay in biopsying a clinically suspicious abnormality. "Our facility is accredited by the [employer] Mammography Program."
== END | disposition home or self-care (01) ==
LOC: MAMMO 08:19
PROVIDERS: ATTEND Nurse Practitioner Gerontology
DX: Z12.31 Encounter for screening mammogram for malignant neoplasm of breast (principal); N64.89 Other specified disorders of breast
CPT/HCPCS: 77063; 77067

== ENCOUNTER 2019-05-23 09:36 | Emergency (ER) | payer MEDICARE ==
[~2019-05-23] VITALS: Ht 167.6 cm; Wt 56.7 kg
--- NOTE | 2019-05-23 10:15 | PHYS DOC ---
Past Medical History Past Medical History: Anxiety, Dementia, Diabetes-Type II, GERD, Hypertension, Seizure Past Surgical History: No Surgical History Alcohol Use: None Drug Use: None Adult General Chief Complaint Chief Complaint: ABDOMINAL PAIN HPI HPI 84-year-old female presenting to the emergency department today with a generalized abdominal pain that occurred a couple hours prior to arrival. Her son is here with her. Now her pain is resolved and she is feeling much better and would like to be discharged home. The pain was a throbbing nonradiating moderate pain that did not have any associated factors. Currently the patient is asymptomatic. Review of systems is negative for fevers chills vomiting headache chest pain or shortness of breath. All other review of systems is negative. ED course: 84-year-old female presenting to the emergency department today with initially generalized abdominal pain that has completely resolved. Blood pressure is mildly elevated, otherwise her vital signs are unremarkable. Her abdomen is soft and nontender. I asked that we do some blood work and a urine testing before she go home which they were willing to. Blood work is unremarkable. Urine testing shows a probable urinary tract infection. We will give her Macrobid for treatment. She'll follow-up with her doctor in 2 days. Review of Systems Review of Systems Constitutional: Denies fever or chills [] Eyes: Denies change in visual acuity, redness, or eye pain [] HENT: Denies nasal congestion or sore throat [] Respiratory: Denies cough or shortness of breath [] Cardiovascular: No additional information not addressed in HPI [] GI: Denies abdominal pain, nausea, vomiting, bloody stools or diarrhea [] : Denies dysuria or hematuria [] Musculoskeletal: Denies back pain or joint pain [] Integument: Denies rash or skin lesions [] Neurologic: Denies headache, focal weakness or sensory changes [] Endocrine: Denies polyuria or polydipsia [] All other systems were reviewed and found to be within normal limits, except as documented in this note. Allergies Allergies Allergies Coded Allergies Type Severity Reaction Last Updated Verified codeine Allergy Intermediate 09/18/18 Yes iodine Allergy Intermediate 09/18/18 Yes Physical Exam Physical Exam Constitutional: Well developed, well nourished, no acute distress, non-toxic appearance. [] HENT: Normocephalic, atraumatic, bilateral external ears normal, oropharynx moist, no oral exudates, nose normal. [] Eyes: PERRLA, EOMI, conjunctiva normal, no discharge. [] Neck: Normal range of motion, no tenderness, supple, no stridor. [] Cardiovascular:Heart rate regular rhythm, no murmur [] Lungs & Thorax: Bilateral breath sounds clear to auscultation [] Abdomen: Bowel sounds normal, soft, no tenderness, no masses, no pulsatile masses. [] Skin: Warm, dry, no erythema, no rash. [] Back: No tenderness, no CVA tenderness. [] Extremities: No tenderness, no cyanosis, no clubbing, ROM intact, no edema. [] Neurologic: Alert and oriented X 3, normal motor function, normal sensory function, no focal deficits noted. [] Psychologic: Affect normal, judgement normal, mood normal. [] Current Patient Data Vital Signs Vital Signs Date Time Temp Pulse Resp B/P (MAP) Pulse Ox O2 Delivery O2 Flow Rate FiO2 05/23/19 09:36 98.1 70 16 189/92 (124) 96 Room Air 98.1 Lab Values Laboratory Tests Test 05/23/19 09:45 05/23/19 10:53 Urine Collection Type Unknown Urine Color Yellow Urine Clarity Clear Urine pH 6.0 Urine Specific [place] 1.010 Urine Protein Negative mg/dL (NEG-TRACE) Urine Glucose (UA) Negative mg/dL (NEG) Urine Ketones (Stick) Negative mg/dL (NEG) Urine Blood Negative (NEG) Urine Nitrite Negative (NEG) Urine Bilirubin Negative (NEG) Urine Urobilinogen Dipstick 0.2 mg/dL (0.2 mg/dL) Urine Leukocyte Esterase Moderate (NEG) Urine RBC 3-5 /HPF (0-2) Urine WBC 5-10 /HPF (0-4) Urine Squamous Epithelial Cells Few /LPF Urine Bacteria Mod /HPF (0-FEW) White Blood Count 5.5 x10^3/uL (4.0-11.0) Red Blood Count 4.77 x10^6/uL (3.50-5.40) Hemoglobin 14.5 g/dL (12.0-15.5) Hematocrit 43.2 % (36.0-47.0) Mean Corpuscular Volume 91 fL (79-100) Mean Corpuscular Hemoglobin 30 pg (25-35) Mean Corpuscular Hemoglobin Concent 34 g/dL (31-37) Red Cell Distribution Width 12.8 % (11.5-14.5) Platelet Count 238 x10^3/uL (140-400) Neutrophils (%) (Auto) 43 % (31-73) Lymphocytes (%) (Auto) 40 % (24-48) Monocytes (%) (Auto) 11 % (0-9) H Eosinophils (%) (Auto) 6 % (0-3) H Basophils (%) (Auto) 1 % (0-3) Neutrophils # (Auto) 2.4 x10^3/uL (1.8-7.7) Lymphocytes # (Auto) 2.2 x10^3/uL (1.0-4.8) Monocytes # (Auto) 0.6 x10^3/uL (0.0-1.1) Eosinophils # (Auto) 0.3 x10^3/uL (0.0-0.7) Basophils # (Auto) 0.0 x10^3/uL (0.0-0.2) Sodium Level 145 mmol/L (136-145) Potassium Level 4.2 mmol/L (3.5-5.1) Chloride Level 107 mmol/L (98-107) Carbon Dioxide Level 28 mmol/L (21-32) Anion Gap 10 (6-14) Blood Urea Nitrogen 9 mg/dL (7-20) Creatinine 0.7 mg/dL (0.6-1.0) Estimated GFR (Cockcroft-Gault) 96.7 BUN/Creatinine Ratio 13 (6-20) Glucose Level 166 mg/dL (70-99) H Calcium Level 8.9 mg/dL (8.5-10.1) Total Bilirubin 0.3 mg/dL (0.2-1.0) Aspartate Amino Transferase (AST) 13 U/L (15-37) L Alanine Aminotransferase (ALT) 12 U/L (14-59) L Alkaline Phosphatase 53 U/L (46-116) Troponin I Quantitative < 0.017 ng/mL (0.000-0.055) Total Protein 6.8 g/dL (6.4-8.2) Albumin 3.3 g/dL (3.4-5.0) L Albumin/Globulin Ratio 0.9 (1.0-1.7) L Lipase 234 U/L (73-393) Laboratory Tests 05/23/19 10:53 Laboratory Tests 05/23/19 10:53 EKG EKG [] Radiology/Procedures Radiology/Procedures [] Course & Med Decision Making Course & Med Decision Making Pertinent Labs and Imaging studies reviewed. (See chart for details) [] Dragon Disclaimer Dragon Disclaimer This electronic medical record was generated, in whole or in part, using a voice recognition dictation system. Departure Departure Impression: Primary Impression: UTI (urinary tract infection) Disposition: HOME, SELF-CARE Condition: STABLE Referrals: ANKUR ESCAMILLA (PCP) Patient Instructions: Abdominal Pain, Urinary Tract Infection Additional Instructions: Thank you for allowing us to participate in your care today. Return to the emergency department you have any new or worsening symptoms, or if you are concerned for any reason. Return to emergency department if you have any new or concerning symptoms including but not limited to fever, chills, nausea, vomiting, intractable pain, any new rashes, chest pain, shortness of air, uncontrolled bleeding, difficulty breathing, and/or vision loss. Follow up with your primary care physician within 1-2 days. Call your Primary Doctor tomorrow and inform them of your visit today. If you do not have a primary care provider we are happy to provide you with a list of our primary care providers contact information. This condition should be evaluated by your primary care physician and any recommended consulting services for continued management within 2 days after discharge. If at any time, you are having difficulty getting into your primary care doctor or a specialist, return to the emergency department. IVA VALADEZ MD May 23, 2019 10:15
[2019-05-23 10:36] LABS: BILIRUBIN,URINE NEGATIVE (NEG); CLARITY,URINE CLEAR; COLOR,URINE YELLOW; NITRITE,URINE NEGATIVE (NEG); PROTEIN,URINE NEGATIVE (NEG-TRACE); UROBILINOGEN,URINE 0.2 mg/dL (0.2 mg/dL)
[2019-05-23 10:47] LABS: BACTERIA,URINE MOD /HPF (0-FEW); SQUAMOUS EPITHELIAL CELL,UR FEW /LPF
[2019-05-23 11:15] LABS: BASO % 1 % (0-3); EOS # 0.3 x10^3/uL (0.0-0.7); EOS % 6 % (0-3); HEMATOCRIT 43.2 % (36.0-47.0); HEMOGLOBIN 14.5 g/dL (12.0-15.5); LYMPH # 2.2 x10^3/uL (1.0-4.8); LYMPH % 40 % (24-48); MEAN CORPUSCULAR HEMOGLOBIN 30 pg (25-35); MEAN CORPUSCULAR HGB CONC 34 g/dL (31-37); MEAN CORPUSCULAR VOLUME 91 fL (79-100); MONO # 0.6 x10^3/uL (0.0-1.1); MONO % 11 % (0-9); NEUT # 2.4 x10^3/uL (1.8-7.7); NEUT % 43 % (31-73); PLATELET COUNT 238 x10^3/uL (140-400); RED BLOOD COUNT 4.77 x10^6/uL (3.50-5.40); RED CELL DISTRIBUTION WIDTH 12.8 % (11.5-14.5); WHITE BLOOD COUNT 5.5 x10^3/uL (4.0-11.0)
--- NOTE | 2019-05-23 11:16 | EKG ---
[facility] [address] [place] [address] Test Date: 2019-05-23 Test Time: 10:37:34 Pat Name: KUSHAL PRATHER Department: Room: Gender: F Manager Emergency: : 1935 Requested By: IVA VALADEZ Order Number: [id number] Reading MD: Measurements Intervals [place] Rate: 67 P: 48 [place]: 172 QRS: 24 QRSD: 82 T: 50 QT: 416 QTc: 443 Interpretive Statements SINUS RHYTHM QRS(T) CONTOUR ABNORMALITY CONSIDER ANTEROSEPTAL MYOCARDIAL DAMAGE POSSIBLY ABNORMAL ECG RI6.01 No previous ECG available for comparison
[2019-05-23 11:25] LABS: CALCIUM 8.9 mg/dL (8.5-10.1); CREATININE 0.7 mg/dL (0.6-1.0); GFR 96.7; POTASSIUM 4.2 mmol/L (3.5-5.1)
[2019-05-23 11:32] LABS: ALBUMIN 3.3 g/dL (3.4-5.0); ALBUMIN/GLOBULIN RATIO 0.9 (1.0-1.7); TOTAL BILIRUBIN 0.3 mg/dL (0.2-1.0); TOTAL PROTEIN 6.8 g/dL (6.4-8.2)
[2019-05-23 11:44] VITALS: BP 177/83
[2019-05-23] MEDS ORDERED: NITR100C62 PO (11:45)
== END 2019-05-23 12:21 | disposition home or self-care (01) ==
LOC: EDBD 09:36 → ER 09:36
DX: N39.0 Urinary tract infection, site not specified (principal); R10.84 Generalized abdominal pain; F41.9 Anxiety disorder, unspecified; E11.9 Type 2 diabetes mellitus without complications; K21.9 Gastro-esophageal reflux disease without esophagitis; I10 Essential (primary) hypertension; Z88.5 Allergy status to narcotic agent; Z91.041 Radiographic dye allergy status
CPT/HCPCS: 36415; 80053; 81001; 83690; 84484; 85025; 93005; 99285

== ENCOUNTER 2019-09-19 09:05 | Emergency (ER) | payer MEDICARE ==
[~2019-09-19] VITALS: Ht 165.1 cm; Wt 59.9 kg
[~2019-09-19 09:05] MED LIST changes: +NITR100C62 PO
[2019-09-19 09:20] VITALS: BP 133/77
--- NOTE | 2019-09-19 10:45 | RAD ---
CT head and cervical spine without contrast 09/19/2019 9:48 AM Indication: Trauma Comparison: CT head cervical spine September 18, 2018 Procedure: Multidetector CT imaging of the head and cervical spine was performed without the administration of contrast. Findings: There is no evidence of acute intracranial hemorrhage. There is no evidence of acute territorial infarction. Please note that CT is limited for evaluation of acute ischemia. No mass effect or midline shift is identified . The ventricles and basilar cisterns have an appropriate appearance. No abnormal extra-axial fluid collections are seen. No acute osseous changes are identified. Findings: There is no evidence of acute fracture or alignment abnormality of the cervical spine. Vertebral body heights and disc spaces are similar to comparison study. Degenerative changes are similar. The atlantoaxial articulation remains intact. There is no prevertebral soft tissue swelling. Soft tissues are otherwise unremarkable. No bony compromise of the spinal canal is seen. Impression: 1. No evidence of acute intracranial abnormality 2. Stable degenerative changes of the cervical spine without evidence of acute fracture or alignment abnormality CT DOSING PQRS STATEMENT: One or more of the following individualized dose reduction techniques were utilized for this examination: 1. Automated exposure control 2. Adjustment of the mA and/or kV according to patient size 3. Use of iterative reconstruction technique Electronically signed by: Gagan Gil MD (09/19/2019 10:42 AM) [id number]
--- NOTE | 2019-09-19 10:49 | PHYS DOC ---
Past Medical History Past Medical History: Anxiety, Dementia, Diabetes-Type II, GERD, Hypertension, Seizure Past Surgical History: Other Additional Past Surgical Histo: CATARACT, LEFT TOE Alcohol Use: None Drug Use: None Adult General Chief Complaint Chief Complaint: MECHANICAL FALL HPI HPI Patient is a 84 year old AA female, accompanied by her family, who presents to the emergency department with complaints of bruising to her right eye. Family states the patient was sitting on the edge of her bed last night and eating ice cream when she slipped off the bed. Patient denies hitting her head however has bruising around her right eye. Patient denies any nausea, vomiting. Family states that the fall was witnessed, they deny any loss of consciousness or bleeding from the nose or ears. She has a history of dementia and is alert and oriented per normal according to family. Patient currently denies any pain. She denies any vision changes, neck pain, headache, or extremity pain/swelling as well. All other ROS is neg unless otherwise noted in HPI. Review of Systems Review of Systems See Above Allergies Allergies Allergies Coded Allergies Type Severity Reaction Last Updated Verified codeine Allergy Intermediate 09/18/18 Yes iodine Allergy Intermediate 09/18/18 Yes Physical Exam Physical Exam See Above Constitutional: Well developed, well nourished, no acute distress, non-toxic appearance. [] HENT: Normocephalic, atraumatic, bilateral external ears normal, bilateral TMs normal, oropharynx moist, no oral exudates, nose normal. [] Eyes: PERRLA, EOMI, conjunctiva normal, no discharge; bruising and tenderness to lateral right orbit, no crepitus or palpable deformity. [] Neck: Normal range of motion, no tenderness, supple, no stridor. [] Cardiovascular:Heart rate regular rhythm, no murmur [] Lungs & Thorax: Bilateral breath sounds clear to auscultation [] Skin: Warm, dry, no erythema, no rash. [] Back: No tenderness Extremities: No cyanosis, no obvious deformity, ROM intact, no edema. [] Neurologic: Alert and oriented X 2, no focal deficits noted. [] Psychologic: Affect normal, judgement normal, mood normal. [] Current Patient Data Vital Signs Vital Signs Date Time Temp Pulse Resp B/P (MAP) Pulse Ox O2 Delivery O2 Flow Rate FiO2 09/19/19 09:20 98.6 77 16 133/77 (95) 96 Room Air 98.6 EKG EKG [] Radiology/Procedures Radiology/Procedures PROCEDURE: CT HEAD AND CERVICAL SPINE WO CT head and cervical spine without contrast 09/19/2019 9:48 AM Indication: Trauma Comparison: CT head cervical spine September 18, 2018 Procedure: Multidetector CT imaging of the head and cervical spine was performed without the administration of contrast. Findings: There is no evidence of acute intracranial hemorrhage. There is no evidence of acute territorial infarction. Please note that CT is limited for evaluation of acute ischemia. No mass effect or midline shift is identified . The ventricles and basilar cisterns have an appropriate appearance. No abnormal extra-axial fluid collections are seen. No acute osseous changes are identified. Findings: There is no evidence of acute fracture or alignment abnormality of the cervical spine. Vertebral body heights and disc spaces are similar to comparison study. Degenerative changes are similar. The atlantoaxial articulation remains intact. There is no prevertebral soft tissue swelling. Soft tissues are otherwise unremarkable. No bony compromise of the spinal canal is seen. Impression: 1. No evidence of acute intracranial abnormality 2. Stable degenerative changes of the cervical spine without evidence of acute fracture or alignment abnormality PROCEDURE: CT ORBITS WO CONTRAST CT of the bony orbits without contrast 09/19/2019 INDICATION: Fall, right-sided trauma to the superior orbital region. COMPARISON STUDY: None FINDINGS: Multidetector CT imaging of the orbits was obtained without contrast for evaluation of bony structures. FINDINGS: Sonographic arches are intact. Paranasal sinuses demonstrate no acute hemorrhage. Mild areas of mucosal thickening noted. Note that the maxillary sinuses are partially visualized. The maxilla is partially visualized. The pterygoid plates appear to be intact. Nasal bones are intact The bony orbits are grossly intact. Prior cataract surgery noted bilaterally. Bilateral globes are otherwise intact. No intraconal or extraconal orbital abnormalities are identified. Probable mild ecchymosis/subcutaneous hemorrhage is seen overlying the right lateral supraorbital region. IMPRESSION: No evidence of acute osseous and normalities involving bony orbits. [] Course & Med Decision Making Course & Med Decision Making Pertinent Labs and Imaging studies reviewed. (See chart for details) [] Dragon Disclaimer Dragon Disclaimer This electronic medical record was generated, in whole or in part, using a voice recognition dictation system. Departure Departure Impression: Primary Impression: Fall Additional Impression: Closed head injury without loss of consciousness Disposition: 01 HOME, SELF-CARE Condition: STABLE Referrals: TASHA ANDERSON MD (PCP) Patient Instructions: Head Injury, Adult, [id number] Additional Instructions: Tylenol or ibuprofen as needed for pain. Follow the head injury precautions provided. Follow up with your primary care doctor in 1-2 days. Return to the ER if symptoms worsen. Problem Qualifiers Primary Impression: Fall Encounter type: initial encounter Qualified Codes: W19.XXXA - Unspecified fall, initial encounter Additional Impression: Closed head injury without loss of consciousness Encounter type: initial encounter Qualified Codes: S09.90XA - Unspecified injury of head, initial encounter ANDREW OSBORNE DROPHAMMER OPERATOR Sep 19, 2019 10:49
--- NOTE | 2019-09-19 11:00 | RAD ---
CT of the bony orbits without contrast 09/19/2019 INDICATION: Fall, right-sided trauma to the superior orbital region. COMPARISON STUDY: None FINDINGS: Multidetector CT imaging of the orbits was obtained without contrast for evaluation of bony structures. FINDINGS: Sonographic arches are intact. Paranasal sinuses demonstrate no acute hemorrhage. Mild areas of mucosal thickening noted. Note that the maxillary sinuses are partially visualized. The maxilla is partially visualized. The pterygoid plates appear to be intact. Nasal bones are intact The bony orbits are grossly intact. Prior cataract surgery noted bilaterally. Bilateral globes are otherwise intact. No intraconal or extraconal orbital abnormalities are identified. Probable mild ecchymosis/subcutaneous hemorrhage is seen overlying the right lateral supraorbital region. IMPRESSION: No evidence of acute osseous and normalities involving bony orbits. CT DOSING PQRS STATEMENT: One or more of the following individualized dose reduction techniques were utilized for this examination: 1. Automated exposure control 2. Adjustment of the mA and/or kV according to patient size 3. Use of iterative reconstruction technique Electronically signed by: Gagan Gil MD (09/19/2019 10:56 AM) [id number]
== END 2019-09-19 11:26 | disposition home or self-care (01) ==
LOC: ER 09:05
DX: S00.11XA Contusion of right eyelid and periocular area, initial encounter (principal); S09.90XA Unspecified injury of head, initial encounter; R51 Headache; I10 Essential (primary) hypertension; K21.9 Gastro-esophageal reflux disease without esophagitis; E11.9 Type 2 diabetes mellitus without complications; F41.9 Anxiety disorder, unspecified; F03.90 Unspecified dementia, unspecified severity, without behavioral disturbance, psychotic disturbance, mood disturbance, and anxiety; Z88.5 Allergy status to narcotic agent; Z88.8 Allergy status to other drugs, medicaments and biological substances; W01.0XXA Fall on same level from slipping, tripping and stumbling without subsequent striking against object, initial encounter; Y93.89 Activity, other specified; Y92.89 Other specified places as the place of occurrence of the external cause; Y99.8 Other external cause status
CPT/HCPCS: 70450; 70480; 72125; 99284

== ENCOUNTER 2019-10-11 15:49 | Inpatient (IN) | payer MEDICARE ==
[~2019-10-11] VITALS: Ht 165.1 cm; Wt 56.3 kg
[2019-10-11 16:16] LABS: BILIRUBIN,URINE SMALL (NEG); CLARITY,URINE CLEAR; COLOR,URINE YELLOW; NITRITE,URINE NEGATIVE (NEG); PROTEIN,URINE 100 mg/dL (NEG-TRACE)
[2019-10-11 16:19] LABS: BASO % 1 % (0-3); EOS # 0.1 x10^3/uL (0.0-0.7); EOS % 2 % (0-3); HEMATOCRIT 46.8 % (36.0-47.0); HEMOGLOBIN 15.7 g/dL (12.0-15.5); LYMPH # 2.9 x10^3/uL (1.0-4.8); LYMPH % 44 % (24-48); MEAN CORPUSCULAR HEMOGLOBIN 31 pg (25-35); MEAN CORPUSCULAR HGB CONC 34 g/dL (31-37); MEAN CORPUSCULAR VOLUME 91 fL (79-100); MONO # 0.6 x10^3/uL (0.0-1.1); MONO % 8 % (0-9); NEUT # 2.9 x10^3/uL (1.8-7.7); NEUT % 44 % (31-73); PLATELET COUNT 232 x10^3/uL (140-400); RED BLOOD COUNT 5.14 x10^6/uL (3.50-5.40); RED CELL DISTRIBUTION WIDTH 13.9 % (11.5-14.5); WHITE BLOOD COUNT 6.6 x10^3/uL (4.0-11.0)
[2019-10-11 16:24] LABS: BACTERIA,URINE 0 /HPF (0-FEW); RBC,URINE 0 /HPF (0-2); WBC,URINE 0 /HPF (0-4)
[2019-10-11 16:25] LABS: HYALINE CASTS, URINE MANY /HPF
--- NOTE | 2019-10-11 16:27 | PDOC1 ---
History and Physical Date of Admission Date of Admission DATE: 10/11/19 TIME: 16:24 Identification/Chief Complaint Chief Complaint Seizures Source Source: Patient History of Present Illness History of Present Illness Ms Millan is an 84yo F w/ PMHx Alzheimer's disease, epilepsy (partial complex seizures), HTN, HLD, anxiety, depression, DM2 brought to ED by her due to 3 seizures during the day. He notes one of the seizures lasted almost 6 minutes. She has been taking her keppra 2000mg PO BID, but he notes she ran out of lorazepam which he gives her prn TID. She was apparently confused and agitated in transit, refusing hospital evaluation and denying seizure activity, but calmed upon evaluation by the ED physician, Dr. Arroyo EKG was NSR, rate of 74, indeterminate axis, incomplete right bundle-branch block, no acute distress and T-wave elevation. CXR clear, CT head negative. Patient is pleasant, but not oriented on my examination, and she is agreeable to hospitalization given 3 breakthrough seizures with no obvious inciting event. Past Medical History Cardiovascular: HTN, Hyperlipidemia CENTRAL NERVOUS SYSTEM: Dementia, Seizure, Other GI: Diverticulosis Psych: Anxiety, Depression Endocrine: Diabetes Past Surgical History Past Surgical History: Other Family History Family History: Family History Unknown Social History Smoke: No ALCOHOL: none Drugs: None Current Medications Current Medications Active Scripts Active Macrobid 100 Mg Capsule (Nitrofurantoin Monohyd/M-Cryst) 100 Mg Capsule 1 Cap PO BID Lorazepam 0.5 Mg Tablet 1 Mg PO PRN TID PRN 30 Days Reported Keppra (Levetiracetam) 100 Mg/1 Ml Solution 2,000 Mg PO BID Ondansetron Odt (Ondansetron) 4 Mg Tab.rapdis 1 Tab PO PRN Q6-8HRS Lisinopril 40 Mg Tablet 1 Tab PO DAILY Metformin Hcl 1,000 Mg Tablet 1 Tab PO BID Escitalopram Oxalate 10 Mg Tablet 10 Mg PO DAILY Mirtazapine 15 Mg Tablet 1 Tab PO QHS Donepezil Hcl 10 Mg Tab.rapdis 10 Mg PO HS Olanzapine 5 Mg Tablet 5 Mg PO DAILY Metoprolol Succinate ( Xl ) (Metoprolol Succinate) 25 Mg Tab.er.24h 50 Mg PO BID Allergies Allergies: Coded Allergies: codeine (Verified Allergy, Intermediate, 09/18/18) iodine (Verified Allergy, Intermediate, 09/18/18) ROS General: YES: Fatigue, Malaise; No: Chills, Night Sweats, Appetite, Other PSYCHOLOGICAL ROS: YES: Disorientation, Memory difficulties; No: Anxiety, Behavioral Disorder, Concentration difficultie, Decreased libido, Depression, Hallucinations, Hostility, Irritablity, Mood Swings, Obsessive thoughts, Physical abuse, Sexual abuse, Sleep disturbances, Suicidal ideation, Other Eyes: No Blurry vision, No Decreased vision, No Double vision, No Dry eyes, No Excessive tearing, No Eye Pain, No Itchy Eyes, No Loss of vision, No Photophobia, No Scotomata, No Uses contacts, No Uses glasses, No Other HEENT: No: Heacaches, Visual Changes, Hearing change, Nasal congestion, Nasal discharge, Oral lesions, Sinus pain, Sore Throat, Epistaxis, Sneezing, Snoring, Tinnitus, Vertigo, Vocal changes, Other ALLERGY AND IMMUNOLOGY: No: Hives, Insect Bite Sensitivity, Itchy/Watery Eyes, Nasal Congestion, Post Nasal Drip, Seasonal Allergies, Other Hematological and Lymphatic: No: Bleeding Problems, Blood Clots, Blood Transfusions, Brusing, Night Sweats, Pallor, Swollen Lymph Nodes, Other ENDOCRINE: No: Breast Changes, Galactorrhea, Hair Pattern Changes, Hot Flashes, Malaise/lethargy, Mood Swings, Palpitations, Polydipsia/polyuria, Skin Changes, Temperature Intolerance, Unexpected Weight Changes, Other Breast: No New/Changing Breast Lumps, No Nipple changes, No Nipple discharge, No Other Respiratory: No: Cough, Hemoptysis, Orthopnea, Pleuritic Pain, Shortness of breath, SOB with excertion, Sputum Changes, Stridor, Tachypnea, Wheezing, Other Cardiovascular: No Chest Pain, No Palpitations, No Orthopnea, No Paroxysmal Noc. Dyspnea, No Edema, No Lt Headedness, No Other Gastrointestinal: No Nausea, No Vomiting, No Abdominal Pain, No Diarrhea, No Constipation, No Melena, No Hematochezia, No Other Genitourinary: No Dysuria, No Frequency, No Incontinence, No Hematuria, No Retention, No Discharge, No Urgency, No Pain, No Flank Pain, No Other, No , No , No , No , No , No , No Musculoskeletal: No Gait Disturbance, No Joint Pain, No Joint Stiffness, No Joint Swelling, No Muscle Pain, No Muscular Weakness, No Pain In:, No Swelling In:, No Other Neurological: Yes Behavorial Changes, Yes Confusion, Yes Memory Loss, Yes Seizures; No Bowel/Bladder ControlChng, No Dizziness, No Gait Disturbance, No Headaches, No Impaired Coord/balance, No Numbness/Tingling, No Speech Problems, No Tremors, No Visual Changes, No Weakness, No Other Skin: No Dry Skin, No Eczema, No Hair Changes, No Lumps, No Mole Changes, No Mo ttling, No Nail Changes, No Pruritus, No Rash, No Skin Lesion Changes, No Other, No Acne Physical Exam General: Alert, Cooperative, No acute distress HEENT: Atraumatic, PERRLA, EOMI, Mucous membr. moist/pink Lungs: Clear to auscultation, Normal air movement Heart: S1S2, RRR, no thrills, no rubs, no gallops, no murmurs Abdomen: Normal bowel sounds, Soft, No tenderness, No hepatosplenomegaly, No masses Rectal Exam: not examined Extremities: No clubbing, No cyanosis, No edema, Normal pulses, No tenderness/swelling Skin: No rashes, No breakdown, No significant lesion Neuro: Normal gait, Normal speech, Strength at 5/5 X4 ext, Normal tone, Sensation intact, Cranial nerves 3-12 NL, Reflexes 2+ Psych/Mental Status: Other (Confused) Labs Labs Laboratory Tests Test 10/11/19 16:10 White Blood Count 6.6 x10^3/uL (4.0-11.0) Red Blood Count 5.14 x10^6/uL (3.50-5.40) Hemoglobin 15.7 g/dL (12.0-15.5) Hematocrit 46.8 % (36.0-47.0) Mean Corpuscular Volume 91 fL (79-100) Mean Corpuscular Hemoglobin 31 pg (25-35) Mean Corpuscular Hemoglobin Concent 34 g/dL (31-37) Red Cell Distribution Width 13.9 % (11.5-14.5) Platelet Count 232 x10^3/uL (140-400) Neutrophils (%) (Auto) 44 % (31-73) Lymphocytes (%) (Auto) 44 % (24-48) Monocytes (%) (Auto) 8 % (0-9) Eosinophils (%) (Auto) 2 % (0-3) Basophils (%) (Auto) 1 % (0-3) Neutrophils # (Auto) 2.9 x10^3/uL (1.8-7.7) Lymphocytes # (Auto) 2.9 x10^3/uL (1.0-4.8) Monocytes # (Auto) 0.6 x10^3/uL (0.0-1.1) Eosinophils # (Auto) 0.1 x10^3/uL (0.0-0.7) Basophils # (Auto) 0.0 x10^3/uL (0.0-0.2) Laboratory Tests Test 10/11/19 16:10 White Blood Count 6.6 x10^3/uL (4.0-11.0) Red Blood Count 5.14 x10^6/uL (3.50-5.40) Hemoglobin 15.7 g/dL (12.0-15.5) Hematocrit 46.8 % (36.0-47.0) Mean Corpuscular Volume 91 fL (79-100) Mean Corpuscular Hemoglobin 31 pg (25-35) Mean Corpuscular Hemoglobin Concent 34 g/dL (31-37) Red Cell Distribution Width 13.9 % (11.5-14.5) Platelet Count 232 x10^3/uL (140-400) Neutrophils (%) (Auto) 44 % (31-73) Lymphocytes (%) (Auto) 44 % (24-48) Monocytes (%) (Auto) 8 % (0-9) Eosinophils (%) (Auto) 2 % (0-3) Basophils (%) (Auto) 1 % (0-3) Neutrophils # (Auto) 2.9 x10^3/uL (1.8-7.7) Lymphocytes # (Auto) 2.9 x10^3/uL (1.0-4.8) Monocytes # (Auto) 0.6 x10^3/uL (0.0-1.1) Eosinophils # (Auto) 0.1 x10^3/uL (0.0-0.7) Basophils # (Auto) 0.0 x10^3/uL (0.0-0.2) Images Images CXR - The cardiomediastinal silhouette is similar in appearance. Right hilar prominence, stable dating back to 2011 and presumed benign. Lungs are otherwise clear. There are no significant pleural effusions. There is no pulmonary vascular congestion. No pneumothorax. IMPRESSION: There is no acute cardiopulmonary process. CT HEAD WO CONTRAST - Atrophy is present. Chronic ischemic changes of the white matter noted. No intracranial hemorrhage, midline shift, or mass effect. Bony structures are unremarkable. Partial opacification of posterior left ethmoid air cells noted. Right alber bullosa is present. Impression: No suspicious process. VTE Prophylaxis Ordered VTE Prophylaxis Devices: Yes VTE Pharmacological Prophylaxi: Yes Assessment/Plan Assessment/Plan A/P: Seizures - inciting event is unclear, no sign of infectious etiology. Given her dementia, sleep deprivation could play a role. Lorazepam could be the etiology if she is withdrawing. I will defer to neurology expertise, but given her age a plan for lorazepam usage is likely necessary, whether it is a scheduled taper or strict very low dose prn or discontinued use. Will cont keppra 2000mg BID. Alzheimer's disease - under treatment, on medications. Will give sunlight during the day, frequent redirection. Try to reduce or eliminate lorazepam if this is possible. Epilepsy - partial complex seizures per chart history. Given the above breakthrough seizures, will consult neurology for further recommendations HTN - cont meds HLD - cont meds Anxiety, depression - on remeron, zyprexa, celexa, will continue if ok with neurology DM2 - basal bolus plus regimen for insulin in house. FEN - ADA diet PPX - heparin FULL CODE Dispo - Inpatient for breakthrough seizures CORINNE CARDENAS MD Oct 11, 2019 16:27
--- NOTE | 2019-10-11 16:34 | RAD ---
PORTABLE CHEST 1V 10/11/2019 4:05 PM INDICATION: Seizure COMPARISON: 04/24/2012 TECHNIQUE: Portable frontal view of the chest is provided. FINDINGS: The cardiomediastinal silhouette is similar in appearance. Right hilar prominence, stable dating back to 2011 and presumed benign. Lungs are otherwise clear. There are no significant pleural effusions. There is no pulmonary vascular congestion. No pneumothorax. IMPRESSION: There is no acute cardiopulmonary process. Electronically signed by: Danette Gongora MD (10/11/2019 4:31 PM) [id number]
--- NOTE | 2019-10-11 16:41 | RAD ---
Examination: CT HEAD WO CONTRAST History: Seizure Comparison/Correlation: 09/19/2019 CT head and cervical spine Findings: Axial images of the head were obtained without contrast. Atrophy is present. Chronic ischemic changes of the white matter noted. No intracranial hemorrhage, midline shift, or mass effect. Bony structures are unremarkable. Partial opacification of posterior left ethmoid air cells noted. Right alber bullosa is present. Impression: No suspicious process. PQRS Compliance Statement: One or more of the following individualized dose reduction techniques were utilized for this examination: 1. Automated exposure control 2. Adjustment of the mA and/or kV according to patient size 3. Use of iterative reconstruction technique Electronically signed by: Jewel Greenberg MD (10/11/2019 4:39 PM) [facility]
--- NOTE | 2019-10-11 17:07 | PHYS DOC ---
Past Medical History Past Medical History: Anxiety, Dementia, Diabetes-Type II, GERD, Hypertension, Seizure Past Surgical History: Other Additional Past Surgical Histo: CATARACT, LEFT TOE Alcohol Use: None Drug Use: None Adult General Chief Complaint Chief Complaint: ALTERED MENTAL STATUS HPI HPI Patient is a 84 year old female with history of hypertension, anxiety, diabetes mellitus, dementia, seizure who presents via EMS with complaint of seizure. Patient is alert and oriented 1 and unable to give history. Patient called EMS and stated the patient had 3 episodes of seizure. Patient was screaming and didn't want to come to the hospital but after was put in the ambulance was calm and cooperative. Review of Systems Review of Systems Unable to obtain Allergies Allergies Allergies Coded Allergies Type Severity Reaction Last Updated Verified codeine Allergy Intermediate 09/18/18 Yes iodine Allergy Intermediate 09/18/18 Yes Physical Exam Physical Exam Constitutional: Well nourished, no acute distress, non-toxic appearance. [] HENT: Normocephalic, atraumatic. Eyes: PERRLA, EOMI, conjunctiva normal, no discharge. [] Neck: Normal range of motion, no tenderness, supple, no stridor. [] Cardiovascular:Heart rate regular rhythm, no murmur [] Lungs & Thorax: Bilateral breath sounds clear to auscultation [] Abdomen: Bowel sounds normal, soft, no tenderness, no masses, no pulsatile masses. [] Skin: Warm, dry, no erythema, no rash. [] Back: No tenderness, no CVA tenderness. [] Extremities: No tenderness, no cyanosis, no clubbing, ROM intact, no edema. [] Neurologic: Alert and oriented X 1, normal motor function, normal sensory function, no focal deficits noted. [] Psychologic: Affect normal, judgement normal, mood normal. [] Current Patient Data Vital Signs Vital Signs Date Time Temp Pulse Resp B/P (MAP) Pulse Ox O2 Delivery O2 Flow Rate FiO2 10/11/19 16:00 69 100 10/11/19 15:50 98.6 18 124/80 (95) Room Air 98.6 Lab Values Laboratory Tests Test 10/11/19 16:00 10/11/19 16:10 Urine Collection Type U cath Urine Color Yellow Urine Clarity Clear Urine pH 5.0 Urine Specific Ramona 1.025 Urine Protein 100 mg/dL (NEG-TRACE) Urine Glucose (UA) Negative mg/dL (NEG) Urine Ketones (Stick) Negative mg/dL (NEG) Urine Blood Negative (NEG) Urine Nitrite Negative (NEG) Urine Bilirubin Small (NEG) Urine Urobilinogen Dipstick 1.0 mg/dL (0.2 mg/dL) Urine Leukocyte Esterase Negative (NEG) Urine RBC 0 /HPF (0-2) Urine WBC 0 /HPF (0-4) Urine Squamous Epithelial Cells None /LPF Urine Bacteria 0 /HPF (0-FEW) Urine Cellular Casts Occ /HPF Urine Hyaline Casts Many /HPF Urine Mucus Marked /LPF White Blood Count 6.6 x10^3/uL (4.0-11.0) Red Blood Count 5.14 x10^6/uL (3.50-5.40) Hemoglobin 15.7 g/dL (12.0-15.5) H Hematocrit 46.8 % (36.0-47.0) Mean Corpuscular Volume 91 fL (79-100) Mean Corpuscular Hemoglobin 31 pg (25-35) Mean Corpuscular Hemoglobin Concent 34 g/dL (31-37) Red Cell Distribution Width 13.9 % (11.5-14.5) Platelet Count 232 x10^3/uL (140-400) Neutrophils (%) (Auto) 44 % (31-73) Lymphocytes (%) (Auto) 44 % (24-48) Monocytes (%) (Auto) 8 % (0-9) Eosinophils (%) (Auto) 2 % (0-3) Basophils (%) (Auto) 1 % (0-3) Neutrophils # (Auto) 2.9 x10^3/uL (1.8-7.7) Lymphocytes # (Auto) 2.9 x10^3/uL (1.0-4.8) Monocytes # (Auto) 0.6 x10^3/uL (0.0-1.1) Eosinophils # (Auto) 0.1 x10^3/uL (0.0-0.7) Basophils # (Auto) 0.0 x10^3/uL (0.0-0.2) Laboratory Tests 10/11/19 16:10 EKG EKG EKG interpreted by me. EKG at 1557 showed normal sinus rhythm at rate of 74, indeterminate axis, incomplete right bundle-branch block, no acute distress and T-wave elevation. Radiology/Procedures Radiology/Procedures [][id number] [place] [address] IMAGING REPORT Signed PATIENT: KUSHAL PRATHER ACCOUNT: [id number] : 1935 LOCATION: ER AGE: 84 SEX: F EXAM STATUS: REG ER ORD. PHYSICIAN: AMANDA BURROWS MD REASON: seizure PROCEDURE: PORTABLE CHEST 1V PORTABLE CHEST 1V 10/11/2019 4:05 PM INDICATION: Seizure COMPARISON: 04/24/2012 TECHNIQUE: Portable frontal view of the chest is provided. FINDINGS: The cardiomediastinal silhouette is similar in appearance. Right hilar prominence, stable dating back to 2011 and presumed benign. Lungs are otherwise clear. There are no significant pleural effusions. There is no pulmonary vascular congestion. No pneumothorax. IMPRESSION: There is no acute cardiopulmonary process. Electronically signed by: Bhargavi Guthrie MD (10/11/2019 4:31 PM) [id number] DICTATED and SIGNED BY: BHARGAVI GUTHRIE MD DATE: 10/11/[address] [id number] IMAGING REPORT Signed PATIENT: KUSHAL PRATHER ACCOUNT: [id number] : 1935 LOCATION: ER AGE: 84 SEX: F EXAM STATUS: REG ER ORD. PHYSICIAN: AMANDA BURROWS MD REASON: seizure PROCEDURE: CT HEAD WO CONTRAST Examination: CT HEAD WO CONTRAST History: Seizure Comparison/Correlation: 09/19/2019 CT head and cervical spine Findings: Axial images of the head were obtained without contrast. Atrophy is present. Chronic ischemic changes of the white matter noted. No intracranial hemorrhage, midline shift, or mass effect. Bony structures are unremarkable. Partial opacification of posterior left ethmoid air cells noted. Right alber bullosa is present. Impression: No suspicious process. PQRS Compliance Statement: One or more of the following individualized dose reduction techniques were utilized for this examination: 1. Automated exposure control 2. Adjustment of the mA and/or kV according to patient size 3. Use of iterative reconstruction technique Electronically signed by: Jewel Bee MD (10/11/2019 4:39 PM) [facility] DICTATED and SIGNED BY: JEWEL BEE MD DATE: 10/11/19 3926 Course & Med Decision Making Course & Med Decision Making Pertinent Labs and Imaging studies reviewed. (See chart for details) Evaluation of patient in ER showed 83-year-old female patient with history of 3 episodes of seizure per her and agitation and altered mental status. Plan to admit patient. Patient requiring admission for further evaluation and treatment. Discussed with Dr. Quezada who is in agreement with admission. Discussed findings and plan with patient and family, who acknowledge understanding and agreement. CMP is pending. Dragon Disclaimer Dragon Disclaimer This electronic medical record was generated, in whole or in part, using a voice recognition dictation system. Departure Departure Impression: Primary Impression: Status epilepticus Additional Impression: Agitation Disposition: 09 ADMITTED INPATIENT Admitting Physician: ERICH Condition: STABLE Referrals: TASHA ANDERSON MD (PCP) Problem Qualifiers AMANDA BURROWS MD Oct 11, 2019 17:06
[2019-10-11] MEDS ORDERED: AMLO5TAB10 PO (19:31)
[2019-10-11] MEDS ORDERED: MIRT15TA3 PO (19:31)
[2019-10-11] MEDS ORDERED: METO50TA6 PO (19:31)
[2019-10-11] MEDS ORDERED: FAMO20TA5 PO (19:31)
[2019-10-11] MEDS ORDERED: ESCI10TA2 PO (19:31)
[2019-10-11] MEDS ORDERED: LEVE500T6 PO (19:31)
[2019-10-11] MEDS ORDERED: METF10007 PO (19:31)
[2019-10-11] MEDS ORDERED: ONDA4TAB11 PO (19:31)
[2019-10-11] MEDS ORDERED: LISI-130 PO (19:31)
[2019-10-11] MEDS ORDERED: DONE10TA7 PO (19:31)
[2019-10-11] MEDS ORDERED: LORA-434 PO (19:31)
[2019-10-11] MEDS ORDERED: ONDANSETRON PF 4 MG/2 ML VIAL. IV PRN (19:45)
[2019-10-11] MEDS ORDERED: LORazepam 0.5 MG TABLET PO PRN (19:45)
[2019-10-11] MEDS ORDERED: ACETAMINOPHEN 325 MG TABLET. PO PRN (19:45)
[2019-10-11] MEDS ORDERED: DOCUSATE SODIUM 100 MG CAPSULE. PO PRN (19:45)
[2019-10-11] MEDS ORDERED: ONDANSETRON ODT 4 MG TAB.RAPDIS. PO PRN (19:45)
[2019-10-11 19:54] LABS: CALCIUM 8.7 mg/dL (8.5-10.1); CREATININE 0.8 mg/dL (0.6-1.0); GFR 82.9; POTASSIUM 4.1 mmol/L (3.5-5.1)
[2019-10-11 19:59] LABS: ALBUMIN 3.4 g/dL (3.4-5.0); MAGNESIUM 1.7 mg/dL (1.8-2.4); TOTAL BILIRUBIN 0.2 mg/dL (0.2-1.0); TOTAL PROTEIN 6.7 g/dL (6.4-8.2)
[2019-10-11] MEDS ORDERED: LATANOPROST 0.005% OPHTH SOLUTION 2.5ML BOTTLE. OU SCH (21:00)
[2019-10-11] MEDS ORDERED: FAMOTIDINE 20 MG TABLET. PO SCH (21:00)
[2019-10-11] MEDS ORDERED: MIRTAZAPINE 15 MG TABLET PO SCH (21:00)
[2019-10-11] MEDS: METOPROLOL TART IMMED RELEASE 50 MG TABLET. PO SCH (21:18)
[2019-10-11] MEDS: HEPARIN for SUB-Q USE 5,000 UNIT/ML VIAL. SQ SCH (21:30)
[2019-10-11] MEDS ORDERED: MAGNESIUM SULFATE 2GM 50 ML IV ONE (22:00)
[2019-10-11 23:00] VITALS: BP 141/72
--- NOTE | 2019-10-11 23:30 | NUR ---
ADMIT NOTE The patient, KUSHAL PRATHER, 84 y/o, F admitted by CORINNE CARDENAS MD, was given written information regarding hospital policies, unit procedures and contact persons. Patient A&O to self, afebrile, VSS, with no complaints of pain upon admission. Spouse present on admission, assisting with patient history and other admission questions. Plan of care discussed with patient and family, home medications and allergies verified, and admit packet reviewed. Patient in bed, bed in lowest/locked position, call light within reach, seizure precautions in place, and family at bedside, will continue to monitor.
[2019-10-12 03:00] VITALS: BP 123/56
--- NOTE | 2019-10-12 06:07 | EKG ---
[facility] [address] [place] [address] Test Date: 2019-10-11 Test Time: 15:57:15 Pat Name: KUSHAL PRATHER Department: Room: Gender: F Inventory Control Assistant: : 1935 Requested By: AMANDA BURROWS Order Number: [id number] Reading MD: Measurements Intervals [place] Rate: 74 P: 69 MT: 168 QRS: 44 QRSD: 122 T: 60 QT: 408 QTc: 458 Interpretive Statements SINUS RHYTHM INDETERMINATE AXIS INCOMPLETE RIGHT BUNDLE BRANCH BLOCK BORDERLINE ECG No previous ECG available for comparison
[2019-10-12] MEDS: HEPARIN for SUB-Q USE 5,000 UNIT/ML VIAL. SQ SCH ×2 (06:09→14:00)
[2019-10-12 07:00] VITALS: BP 105/61
[2019-10-12] MEDS ORDERED: DEXTROSE 50% 25 GM / 50ML DISP.SYRIN. IV PRN (09:00)
[2019-10-12] MEDS ORDERED: amLODIPine BESYLATE 5 MG TABLET PO SCH (09:00)
[2019-10-12] MEDS ORDERED: LISINOPRIL 20 MG TABLET PO SCH (09:00)
[2019-10-12] MEDS ORDERED: IV DEXTROSE 5% 250 ML BAG. IV PRN (09:00)
[2019-10-12] MEDS ORDERED: CITALOPRAM 20 MG TABLET. PO SCH (09:00)
[2019-10-12] MEDS ORDERED: OLANZapine 5 MG TABLET PO SCH (09:00)
[2019-10-12] MEDS ORDERED: DONEPEZIL HCL 10 MG TABLET. PO SCH (09:00)
[2019-10-12 09:19] LABS: CALCIUM 8.5 mg/dL (8.5-10.1); CREATININE 0.7 mg/dL (0.6-1.0); GFR 96.7; MAGNESIUM 2.2 mg/dL (1.8-2.4); POTASSIUM 3.9 mmol/L (3.5-5.1)
--- NOTE | 2019-10-12 09:44 | PDOC2 ---
NEUROLOGY CONSULT Date of Admission Date of Admission DATE: 10/12/19 TIME: : Reason for Consult Reason for Consult: Seizures Referring Physician Referring Physician: Dr. Quezada PCP: Dr. Clements Source Source: Caregiver (), Chart review, Patient History of Present Illness History of Present Illness The patient is an 83-year-old right-handed female whom I follow in the office regarding Alzheimer's disease and epilepsy. I last saw her 5 months ago. She does get flurry of seizures and indeed had 3 minor seizures yesterday with staring and mild tremulous movements. The last one lasted about 6 minutes. She has not missed any doses of her levetiracetam. Note she is on Ativan PRN but has not missed any doses of this. There has been no recent change in condition or medications. The patient was an emergency department for a fall recently (09/19). In the past, urine drug screens have been negative for the benzodiazepines, so there is a question of whether the Ativan is being diverted. I see from the clinic chart that the patient was positive for lorazepam on an 08/29/18 specific urine drug screen. Past Medical History Cardiovascular: HTN, Hyperlipidemia CENTRAL NERVOUS SYSTEM: Dementia, Seizure, Other (Essential tremor, gait disorder) GI: Diverticulosis Psych: Anxiety, Depression Endocrine: Diabetes Past Surgical History Past Surgical History: Other (Toe) Family History Family History: Other ( Alzheimer's) Social History Social History , no alcohol or tobacco Current Medications Current Medications Current Medications Amlodipine Besylate (Norvasc) 5 mg DAILY PO ; Start 10/12/19 at 09:00 Donepezil HCl (Aricept) 10 mg DAILY PO ; Start 10/12/19 at 09:00 Famotidine (Pepcid) 20 mg QHS PO Last administered on 10/11/19at 21:18; Start 10/11/19 at 21:00 Levetiracetam (Keppra) 2,000 mg BID PO Last administered on 10/11/19at 21:17; Start 10/11/19 at 21:00 Lisinopril (Prinivil) 40 mg DAILY PO ; Start 10/12/19 at 09:00 Lorazepam (Ativan) 1 mg PRN TID PRN PO ANXIETY / AGITATION Last administered on 10/11/19at 21:18; Start 10/11/19 at 19:45 Metoprolol Tartrate (Lopressor) 50 mg BID PO Last administered on 10/11/19at 21:18; Start 10/11/19 at 21:00 Mirtazapine (Remeron) 15 mg QHS PO Last administered on 10/11/19at 21:18; Start 10/11/19 at 21:00 Olanzapine (ZyPREXA) 5 mg DAILY PO ; Start 10/12/19 at 09:00 Ondansetron HCl (Zofran Odt) 4 mg PRN Q6HRS PRN PO nausea; Start 10/11/19 at 19:45 Citalopram Hydrobromide (CeleXA) 20 mg DAILY PO ; Start 10/12/19 at 09:00 Ondansetron HCl (Zofran) 4 mg PRN Q4HRS PRN IV NAUSEA/VOMITING; Start 10/11/19 at 19:45 Acetaminophen (Tylenol) 650 mg PRN Q4HRS PRN PO TEMP OVER 100.4F OR MILD PAIN; Start 10/11/19 at 19:45 Docusate Sodium (Colace) 100 mg PRN BID PRN PO CONSTIPATION; Start 10/11/19 at 19:45 Heparin Sodium (Porcine) (Heparin Sodium) 5,000 unit Q8HRS SQ Last administered on 10/12/19at 06:09; Start 10/11/19 at 22:00 Latanoprost (Xalatan) 1 drop QHS OU Last administered on 10/11/19at 21:19; Start 10/11/19 at 21:00 Magnesium Sulfate 50 ml @ 25 mls/hr 1X ONCE IV Last administered on 10/11/19at 22:41; Start 10/11/19 at 22:00; Stop 10/11/19 at 23:59; Status DC Lorazepam (Ativan Inj) 2 mg PRN Q4HRS PRN IVP ANXIETY / AGITATION; Start 10/12/19 at 09:00 Lorazepam (Ativan) 1 mg TID PO ; Start 10/12/19 at 09:00 Metformin HCl (Glucophage) 1,000 mg BIDWMEALS PO ; Start 10/12/19 at 12:00 Insulin Human Lispro (HumaLOG) 0-9 UNITS TIDWMEALS SQ ; Start 12/27/19 at 12:00 Dextrose (Dextrose 50%-Water Syringe) 12.5 gm PRN Q15MIN PRN IV SEE COMMENTS; Start 10/12/19 at 09:00 Dextrose (Iv Dextrose 5%) 250 ml PRN Q15MIN PRN IV SEE COMMENTS; Start 10/12/19 at 09:00 Active Scripts Active Macrobid 100 Mg Capsule (Nitrofurantoin Monohyd/M-Cryst) 100 Mg Capsule 1 Cap PO BID Lorazepam 0.5 Mg Tablet 1 Mg PO PRN TID PRN 30 Days Reported Mirtazapine 15 Mg Tablet 1 Tab PO QHS Lisinopril 40 Mg Tablet 1 Tab PO DAILY Metformin Hcl 1,000 Mg Tablet 1,000 Mg PO DAILYWBKFT Famotidine 20 Mg Tablet 20 Mg PO BID Escitalopram Oxalate 10 Mg Tablet 10 Mg PO DAILY Metoprolol Tartrate 50 Mg Tablet 5 Mg PO BID Ativan (Lorazepam) 1 Mg Tablet 1 Mg PO TID Amlodipine Besylate 5 Mg Tablet 5 Mg PO DAILY Levetiracetam 500 Mg Tablet 500 Mg PO BID Donepezil Hcl 10 Mg Tablet 10 Mg PO DAILY Ondansetron Hcl 4 Mg Tablet 4 Mg PO Q8HRS Keppra (Levetiracetam) 100 Mg/1 Ml Solution 2,000 Mg PO BID Ondansetron Odt (Ondansetron) 4 Mg Tab.rapdis 1 Tab PO PRN Q6-8HRS Lisinopril 40 Mg Tablet 1 Tab PO DAILY Metformin Hcl 1,000 Mg Tablet 1 Tab PO BID Escitalopram Oxalate 10 Mg Tablet 10 Mg PO DAILY Mirtazapine 15 Mg Tablet 1 Tab PO QHS Donepezil Hcl 10 Mg Tab.rapdis 10 Mg PO HS Olanzapine 5 Mg Tablet 5 Mg PO DAILY Metoprolol Succinate ( Xl ) (Metoprolol Succinate) 25 Mg Tab.er.24h 50 Mg PO BID Allergies Allergies: Coded Allergies: codeine (Verified Allergy, Intermediate, 09/18/18) iodine (Verified Allergy, Intermediate, 09/18/18) ROS Review of System Negative for fever, chills, weight loss, shortness of breath, chest pain, indigestion, hematochezia, melena, and dysuria. Full 14-point review of systems is negative. Physical Exam Physical Examination General: Well-developed, well-nourished, black female, in no acute distress HEENT: Normocephalic andatraumatic. Tympanic membranes clear.Temporal arteriespulsatile and nontender.Fundoscopic exam unremarkable Neck: Supple without bruit, no meningismus Musculoskeletal: Stability:see neurologic. Gait exam:see neurologic. Tone:see neurologic.Strength:see neurologic. Neurological: Mental Status:orientation, memory, attention span/concentration, language, fund of knowledge: does not know the name of the hospital or date, does not know the name of the president. Cranial Nerves:Pupils equal and reactive to light, extraocular movements areintact, visual carey are full to confrontation. Facial sensation is normal. There is no facial asymmetry. Vestibulo-ocular reflex is intact. Palate elvates and tongue protrudes in midline. All other cranial related problems are negative except as mentioned before.Reflexes:2+ and symmetric with flexor plantar responses. Motor:5/5 strength with normal tone and bulk. Coordination:Finger-nose finger and [id number] testing are normal. Rapid alternating movements and fine finger movements are intact. Gait: apraxic, does well with assistance. Sensory:Normal pinprick, vibration, light touch, proprioception. Vitals VITALS Vital Signs Date Time Temp Pulse Resp B/P (MAP) Pulse Ox O2 Delivery O2 Flow Rate FiO2 10/12/19 07:00 98.1 65 18 105/61 (76) 91 Room Air 98.1 Labs Labs Laboratory Tests Test 10/11/19 16:00 10/11/19 16:10 10/11/19 19:15 10/11/19 20:08 Urine Collection Type U cath Urine Color Yellow Urine Clarity Clear Urine pH 5.0 Urine Specific Pound 1.025 Urine Protein 100 mg/dL (NEG-TRACE) Urine Glucose (UA) Negative mg/dL (NEG) Urine Ketones (Stick) Negative mg/dL (NEG) Urine Blood Negative (NEG) Urine Nitrite Negative (NEG) Urine Bilirubin Small (NEG) Urine Urobilinogen Dipstick 1.0 mg/dL (0.2 mg/dL) Urine Leukocyte Esterase Negative (NEG) Urine RBC 0 /HPF (0-2) Urine WBC 0 /HPF (0-4) Urine Squamous Epithelial Cells None /LPF Urine Bacteria 0 /HPF (0-FEW) Urine Cellular Casts Occ /HPF Urine Hyaline Casts Many /HPF Urine Mucus Marked /LPF White Blood Count 6.6 x10^3/uL (4.0-11.0) Red Blood Count 5.14 x10^6/uL (3.50-5.40) Hemoglobin 15.7 g/dL (12.0-15.5) Hematocrit 46.8 % (36.0-47.0) Mean Corpuscular Volume 91 fL (79-100) Mean Corpuscular Hemoglobin 31 pg (25-35) Mean Corpuscular Hemoglobin Concent 34 g/dL (31-37) Red Cell Distribution Width 13.9 % (11.5-14.5) Platelet Count 232 x10^3/uL (140-400) Neutrophils (%) (Auto) 44 % (31-73) Lymphocytes (%) (Auto) 44 % (24-48) Monocytes (%) (Auto) 8 % (0-9) Eosinophils (%) (Auto) 2 % (0-3) Basophils (%) (Auto) 1 % (0-3) Neutrophils # (Auto) 2.9 x10^3/uL (1.8-7.7) Lymphocytes # (Auto) 2.9 x10^3/uL (1.0-4.8) Monocytes # (Auto) 0.6 x10^3/uL (0.0-1.1) Eosinophils # (Auto) 0.1 x10^3/uL (0.0-0.7) Basophils # (Auto) 0.0 x10^3/uL (0.0-0.2) Sodium Level 145 mmol/L (136-145) Potassium Level 4.1 mmol/L (3.5-5.1) Chloride Level 105 mmol/L (98-107) Carbon Dioxide Level 28 mmol/L (21-32) Anion Gap 12 (6-14) Blood Urea Nitrogen 11 mg/dL (7-20) Creatinine 0.8 mg/dL (0.6-1.0) Estimated GFR (Cockcroft-Gault) 82.9 BUN/Creatinine Ratio 14 (6-20) Glucose Level 135 mg/dL (70-99) Lactic Acid Level 4.0 mmol/L (0.4-2.0) Calcium Level 8.7 mg/dL (8.5-10.1) Magnesium Level 1.7 mg/dL (1.8-2.4) Total Bilirubin 0.2 mg/dL (0.2-1.0) Aspartate Amino Transf (AST/SGOT) 13 U/L (15-37) Alanine Aminotransferase (ALT/SGPT) 12 U/L (14-59) Alkaline Phosphatase 63 U/L (46-116) Creatine Kinase 39 U/L (26-192) Troponin I Quantitative < 0.017 ng/mL (0.000-0.055) CW-Lsd-V-Type Natriuretic Peptide 161 pg/mL (0-449) Total Protein 6.7 g/dL (6.4-8.2) Albumin 3.4 g/dL (3.4-5.0) Albumin/Globulin Ratio 1.0 (1.0-1.7) Vitamin B12 Level 314 pg/mL (247-911) Thyroid Stimulating Hormone (TSH) 1.786 uIU/mL (0.358-3.74) Glucose (Fingerstick) 121 mg/dL (70-99) Test 10/11/19 21:30 10/12/19 07:54 Lactic Acid Level 2.5 mmol/L (0.4-2.0) Glucose (Fingerstick) 117 mg/dL (70-99) Laboratory Tests Test 10/11/19 16:00 10/11/19 16:10 10/11/19 19:15 10/11/19 20:08 Urine Collection Type U cath Urine Color Yellow Urine Clarity Clear Urine pH 5.0 Urine Specific Pound 1.025 Urine Protein 100 mg/dL (NEG-TRACE) Urine Glucose (UA) Negative mg/dL (NEG) Urine Ketones (Stick) Negative mg/dL (NEG) Urine Blood Negative (NEG) Urine Nitrite Negative (NEG) Urine Bilirubin Small (NEG) Urine Urobilinogen Dipstick 1.0 mg/dL (0.2 mg/dL) Urine Leukocyte Esterase Negative (NEG) Urine RBC 0 /HPF (0-2) Urine WBC 0 /HPF (0-4) Urine Squamous Epithelial Cells None /LPF Urine Bacteria 0 /HPF (0-FEW) Urine Cellular Casts Occ /HPF Urine Hyaline Casts Many /HPF Urine Mucus Marked /LPF White Blood Count 6.6 x10^3/uL (4.0-11.0) Red Blood Count 5.14 x10^6/uL (3.50-5.40) Hemoglobin 15.7 g/dL (12.0-15.5) Hematocrit 46.8 % (36.0-47.0) Mean Corpuscular Volume 91 fL (79-100) Mean Corpuscular Hemoglobin 31 pg (25-35) Mean Corpuscular Hemoglobin Concent 34 g/dL (31-37) Red Cell Distribution Width 13.9 % (11.5-14.5) Platelet Count 232 x10^3/uL (140-400) Neutrophils (%) (Auto) 44 % (31-73) Lymphocytes (%) (Auto) 44 % (24-48) Monocytes (%) (Auto) 8 % (0-9) Eosinophils (%) (Auto) 2 % (0-3) Basophils (%) (Auto) 1 % (0-3) Neutrophils # (Auto) 2.9 x10^3/uL (1.8-7.7) Lymphocytes # (Auto) 2.9 x10^3/uL (1.0-4.8) Monocytes # (Auto) 0.6 x10^3/uL (0.0-1.1) Eosinophils # (Auto) 0.1 x10^3/uL (0.0-0.7) Basophils # (Auto) 0.0 x10^3/uL (0.0-0.2) Sodium Level 145 mmol/L (136-145) Potassium Level 4.1 mmol/L (3.5-5.1) Chloride Level 105 mmol/L (98-107) Carbon Dioxide Level 28 mmol/L (21-32) Anion Gap 12 (6-14) Blood Urea Nitrogen 11 mg/dL (7-20) Creatinine 0.8 mg/dL (0.6-1.0) Estimated GFR (Cockcroft-Gault) 82.9 BUN/Creatinine Ratio 14 (6-20) Glucose Level 135 mg/dL (70-99) Lactic Acid Level 4.0 mmol/L (0.4-2.0) Calcium Level 8.7 mg/dL (8.5-10.1) Magnesium Level 1.7 mg/dL (1.8-2.4) Total Bilirubin 0.2 mg/dL (0.2-1.0) Aspartate Amino Transf (AST/SGOT) 13 U/L (15-37) Alanine Aminotransferase (ALT/SGPT) 12 U/L (14-59) Alkaline Phosphatase 63 U/L (46-116) Creatine Kinase 39 U/L (26-192) Troponin I Quantitative < 0.017 ng/mL (0.000-0.055) ZZ-Qai-A-Type Natriuretic Peptide 161 pg/mL (0-449) Total Protein 6.7 g/dL (6.4-8.2) Albumin 3.4 g/dL (3.4-5.0) Albumin/Globulin Ratio 1.0 (1.0-1.7) Vitamin B12 Level 314 pg/mL (247-911) Thyroid Stimulating Hormone (TSH) 1.786 uIU/mL (0.358-3.74) Glucose (Fingerstick) 121 mg/dL (70-99) Test 10/11/19 21:30 10/12/19 07:54 Lactic Acid Level 2.5 mmol/L (0.4-2.0) Glucose (Fingerstick) 117 mg/dL (70-99) Images Images CT HEAD WO CONTRAST History: Seizure Comparison/Correlation: 09/19/2019 CT head and cervical spine Findings: Axial images of the head were obtained without contrast. Atrophy is present. Chronic ischemic changes of the white matter noted. No intracranial hemorrhage, midline shift, or mass effect. Bony structures are unremarkable. Partial opacification of posterior left ethmoid air cells noted. Right alber bullosa is present. Impression: No suspicious process. Assessment/Plan Assessment/Plan Impression: Breakthrough partial-complex seizures, no obvious metabolic disturbance, doing fine now Alzheimer's disease Previous concern about diversion of her lorazepam, Urine drug screen okay in August 2018 Low magnesium level, corrected now Lactic acidosis related to seizure Recommendations: Continue levetiracetam Continue lorazepam Consider discharge later today if she remains stable. Follow-up with me in 2 months. Thank you for letting me help with the patient's care. GILLES GONZALES MD Oct 12, 2019 09:44
[2019-10-12] MEDS: METOPROLOL TART IMMED RELEASE 50 MG TABLET. PO SCH (10:32)
[2019-10-12] MEDS: LORazepam 1 MG TABLET PO SCH ×2 (10:32→14:32)
[2019-10-12] MEDS ORDERED: LORA-434 PO (10:38)
--- NOTE | 2019-10-12 10:41 | PDOC3 ---
Discharge Summary Visit Information Date of Admission: Oct 11, 2019 Date of Discharge: Oct 12, 2019 Admitting Diagnosis Comment: Breakthrough partial-complex seizures, no obvious metabolic disturbance, doing fine now Alzheimer's disease Previous concern about diversion of her lorazepam, Urine drug screen okay in August 2018 Low magnesium level, corrected now Lactic acidosis related to seizure Final Diagnosis Problems Medical Problems: (1) Agitation Status: Acute (2) Status epilepticus Status: Acute Brief Hospital Course Allergies Allergies Coded Allergies Type Severity Reaction Last Updated Verified codeine Allergy Intermediate 09/18/18 Yes iodine Allergy Intermediate 09/18/18 Yes Vital Signs Vital Signs Date Time Temp Pulse Resp B/P (MAP) Pulse Ox O2 Delivery O2 Flow Rate FiO2 10/12/19 10:34 65 105/61 10/12/19 07:00 98.1 18 91 Room Air 98.1 Lab Results Laboratory Tests Test 10/11/19 16:00 10/11/19 16:10 10/11/19 19:15 10/11/19 20:08 Urine Collection Type U cath Urine Color Yellow Urine Clarity Clear Urine pH 5.0 Urine Specific [place] 1.025 Urine Protein 100 mg/dL (NEG-TRACE) Urine Glucose (UA) Negative mg/dL (NEG) Urine Ketones (Stick) Negative mg/dL (NEG) Urine Blood Negative (NEG) Urine Nitrite Negative (NEG) Urine Bilirubin Small (NEG) Urine Urobilinogen Dipstick 1.0 mg/dL (0.2 mg/dL) Urine Leukocyte Esterase Negative (NEG) Urine RBC 0 /HPF (0-2) Urine WBC 0 /HPF (0-4) Urine Squamous Epithelial Cells None /LPF Urine Bacteria 0 /HPF (0-FEW) Urine Cellular Casts Occ /HPF Urine Hyaline Casts Many /HPF Urine Mucus Marked /LPF White Blood Count 6.6 x10^3/uL (4.0-11.0) Red Blood Count 5.14 x10^6/uL (3.50-5.40) Hemoglobin 15.7 g/dL (12.0-15.5) Hematocrit 46.8 % (36.0-47.0) Mean Corpuscular Volume 91 fL (79-100) Mean Corpuscular Hemoglobin 31 pg (25-35) Mean Corpuscular Hemoglobin Concent 34 g/dL (31-37) Red Cell Distribution Width 13.9 % (11.5-14.5) Platelet Count 232 x10^3/uL (140-400) Neutrophils (%) (Auto) 44 % (31-73) Lymphocytes (%) (Auto) 44 % (24-48) Monocytes (%) (Auto) 8 % (0-9) Eosinophils (%) (Auto) 2 % (0-3) Basophils (%) (Auto) 1 % (0-3) Neutrophils # (Auto) 2.9 x10^3/uL (1.8-7.7) Lymphocytes # (Auto) 2.9 x10^3/uL (1.0-4.8) Monocytes # (Auto) 0.6 x10^3/uL (0.0-1.1) Eosinophils # (Auto) 0.1 x10^3/uL (0.0-0.7) Basophils # (Auto) 0.0 x10^3/uL (0.0-0.2) Sodium Level 145 mmol/L (136-145) Potassium Level 4.1 mmol/L (3.5-5.1) Chloride Level 105 mmol/L (98-107) Carbon Dioxide Level 28 mmol/L (21-32) Anion Gap 12 (6-14) Blood Urea Nitrogen 11 mg/dL (7-20) Creatinine 0.8 mg/dL (0.6-1.0) Estimated GFR (Cockcroft-Gault) 82.9 BUN/Creatinine Ratio 14 (6-20) Glucose Level 135 mg/dL (70-99) Lactic Acid Level 4.0 mmol/L (0.4-2.0) Calcium Level 8.7 mg/dL (8.5-10.1) Magnesium Level 1.7 mg/dL (1.8-2.4) Total Bilirubin 0.2 mg/dL (0.2-1.0) Aspartate Amino Transf (AST/SGOT) 13 U/L (15-37) Alanine Aminotransferase (ALT/SGPT) 12 U/L (14-59) Alkaline Phosphatase 63 U/L (46-116) Creatine Kinase 39 U/L (26-192) Troponin I Quantitative < 0.017 ng/mL (0.000-0.055) OE-Upd-M-Type Natriuretic Peptide 161 pg/mL (0-449) Total Protein 6.7 g/dL (6.4-8.2) Albumin 3.4 g/dL (3.4-5.0) Albumin/Globulin Ratio 1.0 (1.0-1.7) Vitamin B12 Level 314 pg/mL (247-911) Thyroid Stimulating Hormone (TSH) 1.786 uIU/mL (0.358-3.74) Glucose (Fingerstick) 121 mg/dL (70-99) Test 10/11/19 21:30 10/12/19 07:54 10/12/19 09:00 Lactic Acid Level 2.5 mmol/L (0.4-2.0) Glucose (Fingerstick) 117 mg/dL (70-99) Sodium Level 144 mmol/L (136-145) Potassium Level 3.9 mmol/L (3.5-5.1) Chloride Level 107 mmol/L (98-107) Carbon Dioxide Level 25 mmol/L (21-32) Anion Gap 12 (6-14) Blood Urea Nitrogen 13 mg/dL (7-20) Creatinine 0.7 mg/dL (0.6-1.0) Estimated GFR (Cockcroft-Gault) 96.7 Glucose Level 157 mg/dL (70-99) Calcium Level 8.5 mg/dL (8.5-10.1) Magnesium Level 2.2 mg/dL (1.8-2.4) Laboratory Tests Test 10/11/19 16:00 10/11/19 16:10 10/11/19 19:15 10/11/19 20:08 Urine Collection Type U cath Urine Color Yellow Urine Clarity Clear Urine pH 5.0 Urine Specific [place] 1.025 Urine Protein 100 mg/dL (NEG-TRACE) Urine Glucose (UA) Negative mg/dL (NEG) Urine Ketones (Stick) Negative mg/dL (NEG) Urine Blood Negative (NEG) Urine Nitrite Negative (NEG) Urine Bilirubin Small (NEG) Urine Urobilinogen Dipstick 1.0 mg/dL (0.2 mg/dL) Urine Leukocyte Esterase Negative (NEG) Urine RBC 0 /HPF (0-2) Urine WBC 0 /HPF (0-4) Urine Squamous Epithelial Cells None /LPF Urine Bacteria 0 /HPF (0-FEW) Urine Cellular Casts Occ /HPF Urine Hyaline Casts Many /HPF Urine Mucus Marked /LPF White Blood Count 6.6 x10^3/uL (4.0-11.0) Red Blood Count 5.14 x10^6/uL (3.50-5.40) Hemoglobin 15.7 g/dL (12.0-15.5) Hematocrit 46.8 % (36.0-47.0) Mean Corpuscular Volume 91 fL (79-100) Mean Corpuscular Hemoglobin 31 pg (25-35) Mean Corpuscular Hemoglobin Concent 34 g/dL (31-37) Red Cell Distribution Width 13.9 % (11.5-14.5) Platelet Count 232 x10^3/uL (140-400) Neutrophils (%) (Auto) 44 % (31-73) Lymphocytes (%) (Auto) 44 % (24-48) Monocytes (%) (Auto) 8 % (0-9) Eosinophils (%) (Auto) 2 % (0-3) Basophils (%) (Auto) 1 % (0-3) Neutrophils # (Auto) 2.9 x10^3/uL (1.8-7.7) Lymphocytes # (Auto) 2.9 x10^3/uL (1.0-4.8) Monocytes # (Auto) 0.6 x10^3/uL (0.0-1.1) Eosinophils # (Auto) 0.1 x10^3/uL (0.0-0.7) Basophils # (Auto) 0.0 x10^3/uL (0.0-0.2) Sodium Level 145 mmol/L (136-145) Potassium Level 4.1 mmol/L (3.5-5.1) Chloride Level 105 mmol/L (98-107) Carbon Dioxide Level 28 mmol/L (21-32) Anion Gap 12 (6-14) Blood Urea Nitrogen 11 mg/dL (7-20) Creatinine 0.8 mg/dL (0.6-1.0) Estimated GFR (Cockcroft-Gault) 82.9 BUN/Creatinine Ratio 14 (6-20) Glucose Level 135 mg/dL (70-99) Lactic Acid Level 4.0 mmol/L (0.4-2.0) Calcium Level 8.7 mg/dL (8.5-10.1) Magnesium Level 1.7 mg/dL (1.8-2.4) Total Bilirubin 0.2 mg/dL (0.2-1.0) Aspartate Amino Transf (AST/SGOT) 13 U/L (15-37) Alanine Aminotransferase (ALT/SGPT) 12 U/L (14-59) Alkaline Phosphatase 63 U/L (46-116) Creatine Kinase 39 U/L (26-192) Troponin I Quantitative < 0.017 ng/mL (0.000-0.055) XS-Llq-P-Type Natriuretic Peptide 161 pg/mL (0-449) Total Protein 6.7 g/dL (6.4-8.2) Albumin 3.4 g/dL (3.4-5.0) Albumin/Globulin Ratio 1.0 (1.0-1.7) Vitamin B12 Level 314 pg/mL (247-911) Thyroid Stimulating Hormone (TSH) 1.786 uIU/mL (0.358-3.74) Glucose (Fingerstick) 121 mg/dL (70-99) Test 10/11/19 21:30 10/12/19 07:54 10/12/19 09:00 Lactic Acid Level 2.5 mmol/L (0.4-2.0) Glucose (Fingerstick) 117 mg/dL (70-99) Sodium Level 144 mmol/L (136-145) Potassium Level 3.9 mmol/L (3.5-5.1) Chloride Level 107 mmol/L (98-107) Carbon Dioxide Level 25 mmol/L (21-32) Anion Gap 12 (6-14) Blood Urea Nitrogen 13 mg/dL (7-20) Creatinine 0.7 mg/dL (0.6-1.0) Estimated GFR (Cockcroft-Gault) 96.7 Glucose Level 157 mg/dL (70-99) Calcium Level 8.5 mg/dL (8.5-10.1) Magnesium Level 2.2 mg/dL (1.8-2.4) Brief Hospital Course Ms. Millan is a 84 old AA female, known SZ< who presented with [ ]SZ 3x witnessed by at home, THEy are known to Dr Jay, SHe also has dementia, SHE has not missed any of her keppra doses, but maybe some ativan? She seems to have no PT needs, no more SZ here, CLeared by neuro, requested ativan RX and I gave some Ff up neuro [address] head neg, CXR neg PT seen and examined, dw too Discharge Information Condition at Discharge: Improved, Stable Disposition/Orders: D/C to Home Scheduled Amlodipine Besylate (Amlodipine Besylate) 5 Mg Tablet, 5 MG PO DAILY for Hypertension, (Reported) Entered as Reported by: ALEXANDRA LEBLANC on 10/11/191930 Last Action: Continued on 10/11/191940 by CORINNE CARDENAS MD Donepezil Hcl (Donepezil Hcl) 10 Mg Tablet, 10 MG PO DAILY for Alzh eimer/Dementia, (Reported) Entered as Reported by: ALEXANDRA LEBLANC on 10/11/191930 Last Action: Continued on 10/11/191940 by CORINNE CARDENAS MD Escitalopram Oxalate (Escitalopram Oxalate) 10 Mg Tablet, 10 MG PO DAILY for ANTI-DEPRESSANT, #30 Ref 0 (Reported) Entered as Reported by: CLIFFORD HEATH on 12/24/16 0257 Last Action: Converted on 10/11/191940 by CORINNE CARDENAS MD Famotidine (Famotidine) 20 Mg Tablet, 20 MG PO BID for Heartburn, (Reported) Entered as Reported by: ALEXANDRA LEBLANC on 10/11/191930 Last Action: Continued on 10/11/191940 by CORINNE CARDENAS MD Levetiracetam (Levetiracetam) 500 Mg Tablet, 500 MG PO BID for Seizures, (Reported) Entered as Reported by: ALEXANDRA LEBLANC on 10/11/191930 Last Action: Reviewed on 10/12/19 09 by ISHA DAILEY Lisinopril (Lisinopril) 40 Mg Tablet, 1 TAB PO DAILY for Hypertension, #30 Ref 5 (Reported) Entered as Reported by: ALEXANDRA LEBLANC on 10/11/191930 Last Action: Continued on 10/11/191940 by CORINNE CARDENAS MD Lorazepam (Ativan) 1 Mg Tablet, 1 MG PO TID for Anxiety/Agitation, #60 Prescribed by: ISHA DAILEY on 10/12/19 1038 Metformin Hcl (Metformin Hcl) 1,000 Mg Tablet, 1 TAB PO BID, #180 Ref 3 (Reported) Entered as Reported by: CLIFFORD HEATH on 12/24/161556 Last Action: Converted on 10/12/19900 by ISHA DAILEY Metoprolol Succinate (Metoprolol Succinate ( Xl )) 25 Mg Tab.er.24h, 50 MG PO BID for FOR HYPERTENSION, #30 Ref 0 (Reported) Entered as Reported by: CLIFFORD HEATH on 12/24/161556 Last Action: HELD on 10/12/19900 by ISHA DAILEY Mirtazapine (Mirtazapine) 15 Mg Tablet, 1 TAB PO QHS, #30 (Reported) Entered as Reported by: CLIFFORD HEATH on 12/24/161556 Last Action: Continued on 10/11/191940 by CORINNE CARDENAS MD Olanzapine (Olanzapine) 5 Mg Tablet, 5 MG PO DAILY, (Reported) Entered as Reported by: CLIFFORD HEATH on 12/24/161556 Last Action: Continued on 10/11/191940 by CORINNE CARDENAS MD Ondansetron (Ondansetron Odt) 4 Mg Tab.rapdis, 1 TAB PO PRN Q6-8HRS, (Reported) Entered as Reported by: KIARA STEPHENSON on 12/24/161920 Last Action: Continued on 10/11/191940 by CORINNE CARDENAS MD Ondansetron Hcl (Ondansetron Hcl) 4 Mg Tablet, 4 MG PO Q8HRS for Nausea, (Reported) Entered as Reported by: ALEXANDRA LEBLANC on 10/11/191930 Last Action: Reviewed on 10/12/19900 by ISHA DAILEY Discontinued Medications Donepezil Hcl (Donepezil Hcl) 10 Mg Tab.rapdis, 10 MG PO HS, (Reported) Entered as Reported by: CLIFFORD HEATH on 12/24/161556 Escitalopram Oxalate (Escitalopram Oxalate) 10 Mg Tablet, 10 MG PO DAILY for Depression, (Reported) Entered as Reported by: ALEXANDRA LEBLANC on 10/11/191930 Last Action: Reviewed on 10/12/19900 by ISHA DAILEY Levetiracetam (Keppra) 100 Mg/1 Ml Solution, 2,000 MG PO BID, (Reported) Entered as Reported by: JORGE MATHIS on 12/25/16 1418 Last Action: Continued on 10/11/191940 by CORINNE CARDENAS MD Lisinopril (Lisinopril) 40 Mg Tablet, 1 TAB PO DAILY, (Reported) Entered as Reported by: KIARA STEPHENSON on 12/24/161920 Last Action: Reviewed on 10/12/19900 by ISHA DAILEY Lorazepam (Lorazepam) 0.5 Mg Tablet, 1 MG PO PRN TID PRN for ANXIETY / AGITATION for 30 Days, #90 Ref 0 Prescribed by: STORM CONNER on 07/15/18 1345 Last Action: Continued on 10/11/191940 by CORINNE CARDENAS MD Metformin Hcl (Metformin Hcl) 1,000 Mg Tablet, 1,000 MG PO DAILYWBKFT for ANTI- DIABETIC, Ref 0 (Reported) Entered as Reported by: ALEXANDRA LEBLANC on 10/11/191930 Last Action: New Order on 10/11/191930 by ALEXANDRA LEBLANC Metoprolol Tartrate (Metoprolol Tartrate) 50 Mg Tablet, 5 MG PO BID for Hypertension, (Reported) Entered as Reported by: ALEXANDRA LEBLANC on 10/11/191930 Last Action: Continued on 10/11/191940 by CORINNE CARDENAS MD Mirtazapine (Mirtazapine) 15 Mg Tablet, 1 TAB PO QHS for Depression, #30 Ref 3 (Reported) Entered as Reported by: ALEXANDRA LEBLANC on 10/11/191930 Last Action: HELD on 10/12/19900 by ISHA DAILEY Nitrofurantoin Monohyd/M-Cryst (Macrobid 100 Mg Capsule) 100 Mg Capsule, 1 CAP PO BID, #10 Prescribed by: IVA VALADEZ on 05/23/19 1145 Last Action: HELD on 10/12/19900 by ISHA WALKER MD Oct 12, 2019 10:41
[2019-10-12 11:00] VITALS: BP 153/65
[2019-10-12] MEDS ORDERED: metFORMIN 500 MG TABLET PO SCH (12:00)
[2019-10-12] MEDS ORDERED: INSULIN LISPRO 300 UNITS/3 ML VIAL. SQ SCH (12:00)
--- NOTE | 2019-10-12 16:10 | NUR ---
pt is discharged home with self care at 1523 via wheelchair via this RN. pt is in stable condition. pt has all belongings with her. pt and received discharge instructions and prescriptions and stated they had no further questions for me.
[2019-10-13 01:07] LABS: HEMOGLOBIN A1C 6.5 % (4.8-5.6)
== END 2019-10-12 15:23 | disposition home or self-care (01) | DRG 101 ==
LOC: ER 15:49 → 4 NORTH 16:12
PROVIDERS: ADMIT Internal Medicine; ATTEND Internal Medicine
DX: G40.201 Localization-related (focal) (partial) symptomatic epilepsy and epileptic syndromes with complex partial seizures, not intractable, with status epilepticus (principal); E87.2 Acidosis; F41.9 Anxiety disorder, unspecified; F02.80 Dementia in other diseases classified elsewhere, unspecified severity, without behavioral disturbance, psychotic disturbance, mood disturbance, and anxiety; K21.9 Gastro-esophageal reflux disease without esophagitis; K57.90 Diverticulosis of intestine, part unspecified, without perforation or abscess without bleeding; G30.9 Alzheimer's disease, unspecified; E78.5 Hyperlipidemia, unspecified; I10 Essential (primary) hypertension; F32.9 Major depressive disorder, single episode, unspecified; E11.9 Type 2 diabetes mellitus without complications; G25.0 Essential tremor; Z82.0 Family history of epilepsy and other diseases of the nervous system; Z88.5 Allergy status to narcotic agent; Z91.041 Radiographic dye allergy status; Z72.820 Sleep deprivation; Z79.899 Other long term (current) drug therapy; Z79.84 Long term (current) use of oral hypoglycemic drugs
CPT/HCPCS: 36415; 70450; 71045; 80048; 80053; 80177; 81001; 82550; 82607; 82962; 83036; 83605; 83735; 83880; 84443; 84484; 85025; 93005; J1644; J3475; P9612; 97110; 97116; 99285-25; G0378

== ENCOUNTER 2019-10-18 07:22 | Emergency (ER) | payer BC, MEDICARE ==
[~2019-10-18] VITALS: Ht 175.3 cm; Wt 60.8 kg
[~2019-10-18 07:22] MED LIST changes: +AMLO5TAB10 PO; +DONE10TA7 PO; +ESCI10TA2 PO; +FAMO20TA5 PO; +LORA-434 PO; +METO50TA6 PO; +ONDA-84 PO
[2019-10-18] MEDS ORDERED: IV NORMAL SALINE 1000ML BAG 1,000 ML IV SCH (07:37)
[2019-10-18] MEDS ORDERED: IPRATRPIUM/ALBUTEROL 0.5/2.5MG 3 ML NEBU. NEB ONE (07:45)
[2019-10-18 08:06] LABS: CREATININE 0.7 mg/dL (0.6-1.0); GFR 96.7; POTASSIUM 3.8 mmol/L (3.5-5.1)
[2019-10-18 08:11] LABS: ALBUMIN/GLOBULIN RATIO 0.9 (1.0-1.7); TOTAL BILIRUBIN 0.6 mg/dL (0.2-1.0); TOTAL PROTEIN 8.3 g/dL (6.4-8.2)
[2019-10-18 08:15] LABS: BASO % 0 % (0-3); EOS # 0.1 x10^3/uL (0.0-0.7); EOS % 2 % (0-3); HEMATOCRIT 46.6 % (36.0-47.0); HEMOGLOBIN 15.7 g/dL (12.0-15.5); LYMPH # 1.4 x10^3/uL (1.0-4.8); LYMPH % 19 % (24-48); MEAN CORPUSCULAR HEMOGLOBIN 30 pg (25-35); MEAN CORPUSCULAR HGB CONC 34 g/dL (31-37); MEAN CORPUSCULAR VOLUME 89 fL (79-100); MONO # 0.8 x10^3/uL (0.0-1.1); MONO % 11 % (0-9); NEUT # 5.2 x10^3/uL (1.8-7.7); NEUT % 68 % (31-73); PLATELET COUNT 209 x10^3/uL (140-400); RED BLOOD COUNT 5.21 x10^6/uL (3.50-5.40); RED CELL DISTRIBUTION WIDTH 13.5 % (11.5-14.5); WHITE BLOOD COUNT 7.7 x10^3/uL (4.0-11.0)
--- NOTE | 2019-10-18 08:32 | PHYS DOC ---
Past Medical History Past Medical History: Anxiety, Dementia, Diabetes-Type II, GERD, Hypertension, Seizure Past Surgical History: Other Additional Past Surgical Histo: CATARACT, LEFT TOE Alcohol Use: None Drug Use: None Adult General Chief Complaint Chief Complaint: SHORTNESS OF BREATH HPI HPI Patient is an 84-year-old female who presents with complaint of cough, fever and shortness of breath that has been worsening over the last few days. Patient is not sure how high her fevers been. She denies any chest pain or abdominal pain. She states the shortness of breath is worsened with exertion. She also complains of generalized weakness. She denies any vomiting or diarrhea.[] Review of Systems Review of Systems Constitutional: Denies fever or chills [] Respiratory: Positive cough and shortness of breath [] Cardiovascular: No additional information not addressed in HPI [] GI: Denies abdominal pain, nausea, vomiting or diarrhea [] Integument: Denies rash or skin lesions [] Neurologic: Denies headache, focal weakness or sensory changes [] All other systems were reviewed and found to be within normal limits, except as documented in this note. Current Medications Current Medications Current Medications Medications (Trade) Dose Ordered Sig/Bethany Start Time Stop Time Status Last Admin Dose Admin Albuterol/ Ipratropium (Duoneb) 3 ml 1X ONCE 10/18/19 07:45 10/18/19 07:46 DC 10/18/19 08:05 3 ML Sodium Chloride 1,000 ml @ 1,000 mls/hr Q1H 10/18/19 07:37 10/18/19 08:36 DC 10/18/19 08:39 1,000 MLS/HR Allergies Allergies Allergies Coded Allergies Type Severity Reaction Last Updated Verified codeine Allergy Intermediate 09/18/18 Yes iodine Allergy Intermediate 09/18/18 Yes Physical Exam Physical Exam Constitutional: Well developed, well nourished, no acute distress, non-toxic appearance. [] HENT: Normocephalic, atraumatic, bilateral external ears normal, oropharynx moist, no oral exudates, nose normal. [] Eyes: PERRLA, EOMI, conjunctiva normal, no discharge. [] Neck: Normal range of motion, no tenderness, supple, no stridor. [] Cardiovascular: Mildly tachycardic rate with regular rhythm[] Lungs & Thorax: Fine rhonchi are noted bilaterally to auscultation [] Abdomen: Bowel sounds normal, soft, no tenderness. [] Skin: Warm, dry, no erythema, no rash. [] Extremities: No tenderness, no cyanosis, no clubbing, ROM intact. [] Neurologic: Alert and oriented X 3, no focal deficits noted. [] Current Patient Data Vital Signs Vital Signs Date Time Temp Pulse Resp B/P (MAP) Pulse Ox O2 Delivery O2 Flow Rate FiO2 10/18/19 08:05 95 Room Air 10/18/19 07:30 99.6 105 20 149/83 (105) 99.6 Lab Values Laboratory Tests Test 10/18/19 07:40 10/18/19 08:15 10/18/19 10:10 White Blood Count 7.7 x10^3/uL (4.0-11.0) Red Blood Count 5.21 x10^6/uL (3.50-5.40) Hemoglobin 15.7 g/dL (12.0-15.5) H Hematocrit 46.6 % (36.0-47.0) Mean Corpuscular Volume 89 fL (79-100) Mean Corpuscular Hemoglobin 30 pg (25-35) Mean Corpuscular Hemoglobin Concent 34 g/dL (31-37) Red Cell Distribution Width 13.5 % (11.5-14.5) Platelet Count 209 x10^3/uL (140-400) Neutrophils (%) (Auto) 68 % (31-73) Lymphocytes (%) (Auto) 19 % (24-48) L Monocytes (%) (Auto) 11 % (0-9) H Eosinophils (%) (Auto) 2 % (0-3) Basophils (%) (Auto) 0 % (0-3) Neutrophils # (Auto) 5.2 x10^3/uL (1.8-7.7) Lymphocytes # (Auto) 1.4 x10^3/uL (1.0-4.8) Monocytes # (Auto) 0.8 x10^3/uL (0.0-1.1) Eosinophils # (Auto) 0.1 x10^3/uL (0.0-0.7) Basophils # (Auto) 0.0 x10^3/uL (0.0-0.2) Sodium Level 141 mmol/L (136-145) Potassium Level 3.8 mmol/L (3.5-5.1) Chloride Level 100 mmol/L (98-107) Carbon Dioxide Level 31 mmol/L (21-32) Anion Gap 10 (6-14) Blood Urea Nitrogen 7 mg/dL (7-20) Creatinine 0.7 mg/dL (0.6-1.0) Estimated GFR (Cockcroft-Gault) 96.7 BUN/Creatinine Ratio 10 (6-20) Glucose Level 152 mg/dL (70-99) H Calcium Level 9.0 mg/dL (8.5-10.1) Total Bilirubin 0.6 mg/dL (0.2-1.0) Aspartate Amino Transferase (AST) 11 U/L (15-37) L Alanine Aminotransferase (ALT) 12 U/L (14-59) L Alkaline Phosphatase 77 U/L (46-116) Troponin I Quantitative < 0.017 ng/mL (0.000-0.055) KT-Sfj-P-Type Natriuretic Peptide 285 pg/mL (0-449) Total Protein 8.3 g/dL (6.4-8.2) H Albumin 4.0 g/dL (3.4-5.0) Albumin/Globulin Ratio 0.9 (1.0-1.7) L Influenza Type A Antigen Negative (NEGATIVE) Influenza Type B Antigen Negative (NEGATIVE) Urine Collection Type Unknown Urine Color Yellow Urine Clarity Cloudy Urine pH 6.0 Urine Specific [place] 1.015 Urine Protein Negative mg/dL (NEG-TRACE) Urine Glucose (UA) Negative mg/dL (NEG) Urine Ketones (Stick) Negative mg/dL (NEG) Urine Blood Negative (NEG) Urine Nitrite Negative (NEG) Urine Bilirubin Negative (NEG) Urine Urobilinogen Dipstick 1.0 mg/dL (0.2 mg/dL) Urine Leukocyte Esterase Moderate (NEG) Urine RBC Occ /HPF (0-2) Urine WBC 1-4 /HPF (0-4) Urine Squamous Epithelial Cells Few /LPF Urine Bacteria Few /HPF (0-FEW) Laboratory Tests 10/18/19 07:40 Laboratory Tests 10/18/19 07:40 EKG EKG [] Radiology/Procedures Radiology/Procedures [] Impressions: PROCEDURE: PORTABLE CHEST 1V PORTABLE CHEST 1V 10/18/2019 12:00 AM INDICATION: Cough and fever COMPARISON: 10/11/2019 TECHNIQUE: Portable frontal view of the chest is provided. FINDINGS: The cardiomediastinal silhouette is similar in appearance. There is persistent elevation right hemidiaphragm. No airspace consolidation is visualized. There are no significant pleural effusions. There is no pulmonary vascular congestion. No pneumothorax. IMPRESSION: There is no acute cardiopulmonary process. Electronically signed by: Danette Gongora MD (10/18/2019 8:32 AM) [id number] Course & Med Decision Making Course & Med Decision Making Pertinent Labs and Imaging studies reviewed. (See chart for details) [] Dragon Disclaimer Dragon Disclaimer This electronic medical record was generated, in whole or in part, using a voice recognition dictation system. Departure Departure Impression: Primary Impression: Acute bronchitis Disposition: 01 HOME, SELF-CARE Condition: STABLE Referrals: TASHA ANDERSON MD (PCP) Patient Instructions: Acute Bronchitis Scripts Azithromycin (ZITHROMAX) 250 Mg Tablet 1 PKG PO UD, #6 TAB Prov: LORNA NI Jr. DO 10/18/19 Methylprednisolone (MEDROL) 4 Mg Tab.ds.pk 1 PKG PO UD, #1 PKG Prov: LORNA NI Jr. DO 10/18/19 Problem Qualifiers Primary Impression: Acute bronchitis Bronchitis organism: unspecified organism Qualified Codes: J20.9 - Acute bronchitis, unspecified LORNA NI Jr. DO Oct 18, 2019 08:32
--- NOTE | 2019-10-18 08:35 | EKG ---
[facility] [address] [place] [address] Test Date: 2019-10-18 Test Time: 08:17:51 Pat Name: KUSHAL PRATHER Department: Room: Gender: F District Agent: : [id number] Requested By: LORNA NI Order Number: [id number] Reading MD: Measurements Intervals [place] Rate: 106 P: 9 SD: 154 QRS: -92 QRSD: 132 T: 38 QT: 366 QTc: 488 Interpretive Statements SINUS TACHYCARDIA ABNORMAL RIGHT SUPERIOR AXIS DEVIATION LEFT ANTERIOR FASCICULAR BLOCK NON SPECIFIC INTRAVENTRICULAR BLOCK RVH WITH REPOLARIZATION ABNORMALITY ABNORMAL ECG No previous ECG available for comparison
--- NOTE | 2019-10-18 08:35 | RAD ---
PORTABLE CHEST 1V 10/18/2019 12:00 AM INDICATION: Cough and fever COMPARISON: 10/11/2019 TECHNIQUE: Portable frontal view of the chest is provided. FINDINGS: The cardiomediastinal silhouette is similar in appearance. There is persistent elevation right hemidiaphragm. No airspace consolidation is visualized. There are no significant pleural effusions. There is no pulmonary vascular congestion. No pneumothorax. IMPRESSION: There is no acute cardiopulmonary process. Electronically signed by: Danette Gongora MD (10/18/2019 8:32 AM) [id number]
[2019-10-18 09:15] LABS: INFLUENZA A PATIENT NEGATIVE (NEGATIVE); INFLUENZA B PATIENT NEGATIVE (NEGATIVE)
[2019-10-18] MEDS ORDERED: AZIT250T PO (10:16)
[2019-10-18] MEDS ORDERED: METH4TAB2 PO (10:16)
[2019-10-18 10:26] LABS: BILIRUBIN,URINE NEGATIVE (NEG); CLARITY,URINE CLOUDY; COLOR,URINE YELLOW; NITRITE,URINE NEGATIVE (NEG); PROTEIN,URINE NEGATIVE (NEG-TRACE)
[2019-10-18 10:30] VITALS: BP 131/82
[2019-10-18 10:36] LABS: BACTERIA,URINE FEW /HPF (0-FEW); RBC,URINE OCC /HPF (0-2); SQUAMOUS EPITHELIAL CELL,UR FEW /LPF
== END 2019-10-18 10:32 | disposition home or self-care (01) ==
LOC: ER 07:22
DX: J20.9 Acute bronchitis, unspecified (principal); K21.9 Gastro-esophageal reflux disease without esophagitis; I10 Essential (primary) hypertension; E11.9 Type 2 diabetes mellitus without complications; Z88.5 Allergy status to narcotic agent; Z88.8 Allergy status to other drugs, medicaments and biological substances
CPT/HCPCS: 36415; 71045; 80053; 81001; 83880; 84484; 85025; 87086; 87804; 93005; 94640; 99285; J7030; J7620

== ENCOUNTER → 2020-03-20 | Outpatient (CLI) | payer BC ==
[2019-10-26 15:30] VITALS: BP 153/69
[~2020-03-20] MED LIST changes: +AZIT250T PO; +DOXY100C2 PO; +METH4TAB2 PO
--- NOTE | 2020-03-20 08:49 | RAD ---
EXAM: CT Chest without IV contrast INDICATION: Reason: abnormal CT lung nodule / Spl. Instructions: / History: TECHNIQUE: Multi-detector row CT images were acquired from the thoracic inlet through the upper abdomen without the use of IV contrast. Sagittal and coronal images were acquired from the transaxial data. All CT scans performed at this facility utilize dose optimization techniques as appropriate to the exam, including the following: Automated exposure control and adjustment of the mA and/or KV according to patient size (this includes techniques or standardized protocols for targeted exams where dose is indication/reason for exam). COMPARISON: Abdomen and chest CT of 10/25/2019, CT guided liver biopsy of 11/03/2005. FINDINGS: The absence of IV contrast limits evaluation of soft tissue pathology. CARDIOVASCULAR: Unremarkable MEDIASTINUM & FLORIDALMA: No adenopathy or masses. LUNGS: Previously reported has since resolved. 2.5 cm groundglass attenuation nodule in the left lower lobe. No residual masslike opacity or dominant pulmonary nodule is appreciated. There is mild motion artifact that degrades detail. PLEURAL SPACE: No pleural effusions or pneumothorax. OSSEOUS & SOFT TISSUE: Unremarkable ABDOMEN: Included upper abdomen shows a persistent area of hypoattenuation in the periphery of the right lung adjacent to the gallbladder, previously targeted for biopsy in 2005. IMPRESSION: Interval resolution of the 2.5 cm groundglass opacity in the left lower lobe, compatible with an inflammatory lesion. No persistent intrathoracic findings of concern for malignancy currently. Electronically signed by: Meera Arreola MD (03/20/2020 8:45 AM) [id number]
== END | disposition home or self-care (01) ==
LOC: CT 07:38
PROVIDERS: ATTEND Internal Medicine Pulmonary Disease
DX: R91.1 Solitary pulmonary nodule (principal); R91.8 Other nonspecific abnormal finding of lung field
CPT/HCPCS: 71250

== ENCOUNTER → 2020-03-31 | Outpatient (CLI) | payer BC ==
[2019-10-26 15:30] VITALS: BP 153/69
--- NOTE | 2020-03-31 09:02 | RAD ---
PQRS Compliance Statement: One or more of the following individualized dose reduction techniques were utilized for this examination: 1. Automated exposure control 2. Adjustment of the mA and/or kV according to patient size 3. Use of iterative reconstruction technique CT ABDOMEN WO CONTRAST 03/31/2020 8:28 AM Indication: Weight loss COMPARISON: CT chest, abdomen and pelvis 11/04/2019. TECHNIQUE: Multiple axial CT images of the abdomen were obtained without intravenous contrast. FINDINGS: Lung bases are clear. Heart size is within normal limits. Evaluation of the solid abdominal viscera is limited by lack of intravenous contrast. Stable 2.2 x 2.2 cm hypoattenuating lesion along the gallbladder fossa in segment . Special spleen, bilateral adrenal glands, pancreas and bowel are normal in appearance. No bowel obstruction or inflammation. Cholelithiasis. Indeterminate hypoattenuating lesion in the superior pole left kidney measures 1.9 cm x 1.9 cm. No hydronephrosis. No renal catheter. No suspicious osseous abnormality is identified. Superior plate Schmorl's node is identified at L1 with 25 percent height loss, stable. Stable mild height loss involving L4 with less than 15 percent height loss. IMPRESSION: 1. No suspicious residual abnormality in the left lower lobe. 2. Cholelithiasis. 3. Stable indeterminate hypoattenuating lesion in segment of the liver measuring 2.2 x 2.2 cm, stable when measured in similar dimensions. MRI of the abdomen with without contrast may be of benefit for further evaluation. 4. Indeterminate, stable superior pole left renal lesion measures 1.9 x 1.9 cm. Attention on MRI abdomen may be of benefit. Electronically signed by: Danette Gongora MD (03/31/2020 8:59 AM) [facility]
== END | disposition home or self-care (01) ==
LOC: CT 11:36
PROVIDERS: ATTEND Family Medicine
DX: K80.20 Calculus of gallbladder without cholecystitis without obstruction (principal); R91.1 Solitary pulmonary nodule; R63.4 Abnormal weight loss
CPT/HCPCS: 74150

== ENCOUNTER → 2020-04-16 | Outpatient (CLI) | payer BC ==
[2019-10-26 15:30] VITALS: BP 153/69
--- NOTE | 2020-04-16 13:56 | KCIC ---
Three-view right knee radiographs 04/16/2020 CLINICAL HISTORY: Chronic right knee pain. AP, oblique and lateral digital radiographs of the right knee were obtained. Moderate degenerative changes are seen involving all 3 compartments of the right knee. These consist of joint compartment narrowing, subchondral sclerosis and associated osteophyte formation. Moderate enthesophyte formation is seen involving the anterosuperior aspect of the right patella. There is a very small right suprapatella joint effusion. No fracture or dislocation of the right knee is seen. IMPRESSION: Moderate degenerative changes are seen within the right knee. No acute fracture or dislocation is seen. Electronically signed by: Kian Jason MD (04/16/2020 1:53 PM) [id number]
== END | disposition home or self-care (01) ==
LOC: KCIC 10:21
PROVIDERS: ATTEND Family Medicine
DX: M17.11 Unilateral primary osteoarthritis, right knee (principal); M76.51 Patellar tendinitis, right knee; M25.461 Effusion, right knee; M25.761 Osteophyte, right knee
CPT/HCPCS: 73562